=== PATIENT | female | born 1970 | race Caucasian/White ===

== ENCOUNTER 2021-01-15 16:12 | Outpatient (REF) | payer MEDICARE, MEDICAID, SELFPAY ==
[2021-01-16 07:57] LABS: Follicle Stimulating Hormone 5.4 mIU/mL
== END 2021-01-15 16:13 | disposition home or self-care (01) ==
LOC: HO.LAB 16:12
PROVIDERS: PCP Internal Medicine; Visit Provider Advanced Practice Midwife
DX: R23.2 Flushing (principal)
CPT/HCPCS: 36415; 83001

== ENCOUNTER → 2021-01-20 15:53 | Outpatient (BNVA) | payer MEDICARE, MEDICAID, SELFPAY | PROVIDERS: PCP Internal Medicine; Visit Provider Advanced Practice Midwife | DX: Z13.89 Encounter for screening for other disorder (principal) | CPT/HCPCS: Q3014 ==

== ENCOUNTER → 2021-01-21 12:44 | Outpatient (BNVA) | payer MEDICARE, MEDICAID, SELFPAY | PROVIDERS: PCP Internal Medicine; Visit Provider Advanced Practice Midwife | DX: Z13.89 Encounter for screening for other disorder (principal) | CPT/HCPCS: Q3014 ==

== ENCOUNTER 2021-06-18 | Outpatient (REF) | payer MEDICARE, MEDICAID, SELFPAY ==
[2021-06-18 11:24] LABS: Glucose Urine UA NEG (NEG); Leukocyte Esterase Urine TRACE (NEG); Nitrite Urine NEG (NEG); Urine Blood TRACE (NEG); Urine Ketones NEG (NEG); Urine Protein NEG (NEG-TRACE)
[2021-06-18 11:26] LABS: Appearance Urine CLEAR; Color Urine YELLOW
[2021-06-18 11:36] LABS: Squamous Epithelial Cell Urine TRACE /LPF
== END 2021-06-18 00:01 | disposition home or self-care (01) ==
LOC: HO.HMGCLNP
PROVIDERS: Visit Provider Nurse Practitioner Family
DX: R82.90 Unspecified abnormal findings in urine (principal)
CPT/HCPCS: 81001; 87086

== ENCOUNTER 2021-11-02 02:00 | Outpatient (REF) | payer MEDICARE, MEDICAID, SELFPAY ==
[2021-11-02 16:26] LABS: Appearance Urine CLEAR; Color Urine YELLOW; Glucose Urine UA NEG (NEG); Leukocyte Esterase Urine NEG (NEG); Nitrite Urine NEG (NEG); PH 6.5 (5.0-8.0); UACC Culture Trigger NO; Urine Blood 3+ (NEG); Urine Ketones NEG (NEG); Urine Protein TRACE MG/DL (NEG-TRACE)
[2021-11-02 16:35] LABS: WBC Urine 0-2 /HPF (0-4)
[2021-11-02 16:36] LABS: Squamous Epithelial Cell Urine TRACE /LPF
== END 2021-11-02 02:01 | disposition home or self-care (01) ==
LOC: HO.HMGCLNP 02:00
PROVIDERS: Visit Provider Internal Medicine
DX: R30.0 Dysuria (principal)
CPT/HCPCS: 81001

== ENCOUNTER 2022-07-25 11:41 | Outpatient (REF) | payer MEDICARE, MEDICAID, SELFPAY ==
[2022-07-25 12:03] LABS: MANUAL DIFF FLAG NO
[2022-07-25 12:15] LABS: Basophils Percent Auto 0.5 % (0-2); Eosinophils Absolute Auto 0.1 X10*3/uL (0.0-0.4); Eosinophils Percent Auto 1.6 % (0-4); Hematocrit 42.5 % (37.0-47.0); Hemoglobin 14.3 g/dl (12.0-16.0); Imm Gran Abs Auto 0.01 X10*3/uL (0.00-0.03); Imm Gran Pct Auto 0.2 % (0.0-0.4); Lymphocytes Absolute Auto 2.2 X10*3/uL (1.2-4.9); Lymphocytes Percent Auto 38.7 % (20-40); Mean Corpuscular HGB Conc 33.6 g/dl (31.0-35.0); Mean Corpuscular Hemoglobin 31.6 pg (27.0-33.0); Mean Corpuscular Volume 93.8 fL (80.0-98.0); Monocytes Absolute Auto 0.4 X10*3/uL (0.1-1.2); Monocytes Percent Auto 7.1 % (2-11); Neutrophils Percent Auto 51.9 % (45-73); Platelet Count 191 X10*3/uL (160-400); Red Blood Count 4.53 X10*6/uL (4.20-5.50); Red Cell Distribution Width 12.5 % (11.0-16.0); White Blood Count 5.8 X10*3/uL (4.8-10.8)
[2022-07-25 12:52] LABS: Anion Gap 13 (12-20); Blood Urea Nitrogen 13 mg/dL (9-16); Calcium 9.9 mg/dL (8.4-10.2); Carbon Dioxide 29 mmol/L (22-29); Chloride 105 mmol/L (96-108); Estimated Glomerular Filt Rate > 60; Glucose Random 96 mg/dL (60-115); Potassium 4.2 mmol/L (3.3-5.1); Sodium 143 mmol/L (135-145)
== END 2022-07-25 11:42 | disposition home or self-care (01) ==
LOC: HO.LAB 11:41
PROVIDERS: PCP Internal Medicine; Visit Provider Psychiatry & Neurology Neurology
DX: R56.9 Unspecified convulsions (principal)
CPT/HCPCS: 36415; 80048; 85025

== ENCOUNTER 2022-08-09 10:23 | Outpatient (REF) | payer MEDICARE, MEDICAID, SELFPAY ==
--- NOTE | ~2022-08-09 | CT_ITS ---
EXAMINATION: CT HEAD WITHOUT CONTRAST CLINICAL INFORMATION: Convulsions COMPARISON: November 26, 2017 TECHNIQUE: Contiguous axial imaging was performed from the skull base to vertex without intravenous administration of contrast. This CT examination was performed using dose optimization techniques as appropriate, variously including the following: *Automated exposure control *Adjustment of mA and/or kV according to patient size (this includes techniques or standardized protocols for targeted exams where dose is matched to indication/reason for exam; i.e. extremities or head) *Use of iterative reconstruction technique DLP: 555 mGy-cm FINDINGS: No intracranial hemorrhage identified. No abnormal mass effect or midline structure shift is seen. There is again noted to be cerebellar atrophy with prominence of adjacent CSF spaces. There is wide communication between the cisterna magna and fourth ventricle. Harris-white matter interfaces are maintained. Paranasal sinuses and mastoid air cells are aerated. CT/CT head/brain wo IV con IMPRESSION: No acute intracranial pathology. No significant change in cerebellar atrophy.
== END 2022-08-09 10:24 | disposition home or self-care (01) ==
LOC: HO.CT 10:23
PROVIDERS: PCP Internal Medicine; Visit Provider Psychiatry & Neurology Neurology
DX: R56.9 Unspecified convulsions (principal)
CPT/HCPCS: 70450

== ENCOUNTER 2022-08-18 13:51 | Outpatient (REF) | payer MEDICARE, MEDICAID, SELFPAY ==
[2022-08-19 09:47] LABS: BV Int Neg Control Negative (Negative); BV Int Pos Control Positive (Positive)
== END 2022-08-18 13:52 | disposition home or self-care (01) ==
LOC: HO.LNP 13:51
PROVIDERS: Visit Provider Advanced Practice Midwife
DX: N90.89 Other specified noninflammatory disorders of vulva and perineum (principal)
CPT/HCPCS: 87480; 87510; 87660; 99212

== ENCOUNTER 2022-10-31 17:14 | Emergency (ER) | payer MEDICARE, MEDICAID, SELFPAY ==
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
[2022-10-31 19:23] VITALS: BP 128/74; PULSE 82; RESP 16; TEMP 36.3; O2SAT 93; BMI 22.4
[2022-10-31 21:12] VITALS: BP 116/76; PULSE 99; RESP 14; TEMP 36.8; O2SAT 99
--- NOTE | 2022-10-31 21:40 | PC.NURSE ---
Eval by PA, pt well appearing offers no complaints at this time. Cleared for dc home with staff.
== END 2022-10-31 21:42 | disposition home or self-care (01) ==
PROVIDERS: Emergency Provider Emergency Medicine
DX: R51.9 Headache, unspecified (principal); M54.2 Cervicalgia; Z79.899 Other long term (current) drug therapy
CPT/HCPCS: 70450; 72125; 99283; 99284

== ENCOUNTER 2023-04-07 07:34 | Emergency (ER) | payer MEDICARE, MEDICAID, SELFPAY ==
--- NOTE | ~2023-04-07 | XR_ITS ---
EXAMINATION: XR ANKLE, RIGHT CLINICAL INFORMATION: Slipped in shower. COMPARISON: None available. TECHNIQUE: AP, lateral, and mortise views of the right ankle. FINDINGS: The ankle mortise and subtalar joints are normal. There is no visible acute fracture or dislocation seen. There is minimal lateral malleolar soft tissue swelling likely ligamentous injury. XR/XR ankle RT 2V IMPRESSION: Minimal lateral malleolar soft tissue swelling likely ligamentous injury. No visible acute fracture or dislocation seen.
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
[2023-04-07 07:43] VITALS: BP 122/86; BP 130/69; PULSE 102; PULSE 96; RESP 18; TEMP 36.6; O2SAT 100; O2SAT 99; BMI 20.6
[2023-04-07 07:49] VITALS: PULSE 97; RESP 16
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
== END 2023-04-07 09:56 | disposition home or self-care (01) ==
PROVIDERS: Emergency Provider Emergency Medicine; PCP Internal Medicine
DX: S90.01XA Contusion of right ankle, initial encounter (principal); W07.XXXA Fall from chair, initial encounter; E78.5 Hyperlipidemia, unspecified; G80.9 Cerebral palsy, unspecified; Y93.E1 Activity, personal bathing and showering; Y92.012 Bathroom of single-family (private) house as the place of occurrence of the external cause; Y99.9 Unspecified external cause status; Z79.02 Long term (current) use of antithrombotics/antiplatelets; Z79.899 Other long term (current) drug therapy
CPT/HCPCS: 73600; 99283; 99284

== ENCOUNTER 2023-05-26 09:27 | Outpatient (REF) | payer MEDICARE, MEDICAID, SELFPAY ==
[2023-05-26 12:15] LABS: Alanine Aminotransferase 19 U/L (0-31); Aspartate Amino Transferase 17 U/L (5-31); Cholesterol 157 mg/dL; HDL Cholesterol 53 mg/dL; LDL Cholesterol Calculated 92 mg/dl; Triglycerides 64 mg/dL
== END 2023-05-26 09:28 | disposition home or self-care (01) ==
LOC: HO.HMGCLDS 09:27
PROVIDERS: PCP Internal Medicine; Visit Provider Internal Medicine
DX: E78.5 Hyperlipidemia, unspecified (principal)
CPT/HCPCS: 36415; 80061; 84450; 84460

== ENCOUNTER 2023-07-21 08:47 | Outpatient (REF) | payer MEDICARE, MEDICAID, SELFPAY ==
[2023-07-21 11:22] LABS: MANUAL DIFF FLAG NO
[2023-07-21 11:36] LABS: Basophils Percent Auto 0.4 % (0-2); Eosinophils Absolute Auto 0.1 X10*3/uL (0.0-0.4); Eosinophils Percent Auto 1.3 % (0-4); Hematocrit 43.3 % (37.0-47.0); Hemoglobin 14.1 g/dl (12.0-16.0); Imm Gran Abs Auto 0.02 X10*3/uL (0.00-0.03); Imm Gran Pct Auto 0.3 % (0.0-0.4); Lymphocytes Absolute Auto 1.8 X10*3/uL (1.2-4.9); Lymphocytes Percent Auto 23.9 % (20-40); Mean Corpuscular HGB Conc 32.6 g/dl (31.0-35.0); Mean Corpuscular Volume 98.2 fL (80.0-98.0); Mean Platelet Volume 12.5 fL (9.4-12.3); Monocytes Absolute Auto 0.5 X10*3/uL (0.1-1.2); Monocytes Percent Auto 6.1 % (2-11); Neutrophils Absolute Auto 5.1 x10*3/uL (2.0-8.3); Platelet Count 225 X10*3/uL (160-400); Red Blood Count 4.41 X10*6/uL (4.20-5.50); Red Cell Distribution Width 12.8 % (11.0-16.0); White Blood Count 7.5 X10*3/uL (4.8-10.8)
[2023-07-21 12:41] LABS: Vitamin B12 413 pg/mL (200-900)
[2023-07-21 12:42] LABS: Alanine Aminotransferase 26 U/L (0-31); Albumin Level 4.1 g/dL (3.5-5.0); Alkaline Phosphatase 116 U/L (39-117); Anion Gap 13 (12-20); Aspartate Amino Transferase 19 U/L (5-31); Bilirubin Total 1.1 mg/dL (0.0-1.0); Blood Urea Nitrogen 15 mg/dL (9-16); Calcium 9.7 mg/dL (8.4-10.2); Carbon Dioxide 26 mmol/L (22-29); Chloride 106 mmol/L (96-108); Cholesterol 148 mg/dL (<200); Estimated Glomerular Filt Rate 58; Glucose Fasting 91 mg/dL (60-99); HDL Cholesterol 56 mg/dL (>40); LDL Cholesterol Calculated 80 mg/dL (<100); Sodium 141 mmol/L (135-145); Total Protein 7.3 g/dL (6.5-8.0); Triglycerides 61 mg/dL (<150)
[2023-07-21 12:59] LABS: Vitamin D 25-OH Total 17.6 ng/mL (>30)
== END 2023-07-21 08:48 | disposition home or self-care (01) ==
LOC: HO.HMGCLDS 08:47
PROVIDERS: PCP Internal Medicine; Visit Provider Internal Medicine
DX: E78.5 Hyperlipidemia, unspecified (principal); G80.9 Cerebral palsy, unspecified; K59.00 Constipation, unspecified; F81.89 Other developmental disorders of scholastic skills; R63.4 Abnormal weight loss
CPT/HCPCS: 36415; 80053; 80061; 82306; 82607; 82746; 84443; 85025

== ENCOUNTER 2023-07-26 00:41 | Emergency (ER) | payer MEDICARE, MEDICAID, SELFPAY ==
--- NOTE | ~2023-07-26 | XR_ITS ---
EXAMINATION: XR CHEST CLINICAL INFORMATION: Fever. COMPARISON: 11/26/2017 TECHNIQUE: Frontal view of the chest was obtained. FINDINGS: The cardiomediastinal silhouette is normal. There is no focal lung consolidation or pleural effusion. The bony structures and soft tissues are unremarkable. XR/XR chest 1V IMPRESSION: No active cardiopulmonary disease.
[2023-07-26 00:51] VITALS: BP 104/68; BP 107/68; PULSE 114; PULSE 72; RESP 18; TEMP 38.3; O2SAT 94; O2SAT 96; BMI 19.7
--- NOTE | 2023-07-26 00:59 | ED_ITS ---
HPI - Fever General Chief Complaint: Fever Stated Complaint: fever Time Seen by Provider: 07/26/23 00:51 Source: EMS Mode of arrival: EMS Limitations: other History of Present Illness HPI Narrative: patient comes to the emergency room via ambulance from a nursing home. According to the staff, he reported to EMS that the patient had a fever starting today, up to 1 of the knee. They did not give any medication to the patient. Patient's mother is at bedside, reports that several people at the nursing home have been sick. Diagnosis unclear. Less than 2 weeks ago, patient was diagnosed with a UTI, patient finished a 7 day course of antibiotics with Bactrim. Patient has cerebral palsy, patient is unable to make her needs known Related Data Home Medications Medication Instructions Recorded Confirmed baclofen 20 mg tablet 20 mg PO PRN 03/28/22 05/10/22 baclofen 10 mg tablet 10 mg PO BID 07/29/22 Previous Rx's Medication Instructions Recorded carbamide peroxide 6.5 % ear drops 5 drp otic (ear) left DAILY 4 days 11/25/21 (Debrox) #18 mL lightweight manual wheelchair #1 ea 06/02/22 emollient combination no.69 See Rx Instructions topical .qd 07/20/22 (Eucerin Skin Calming cream) #226 grams hydroxyzine HCl 10 mg tablet 10 mg PO BEDTIME PRN itching #30 08/12/22 tabs triamcinolone acetonide 0.025 % 1 appl topical BID 10 days #15 08/24/22 topical cream grams wheelchair #1 ea 11/24/22 oxybutynin chloride 10 mg 10 mg PO QPM #90 tabs 01/25/23 tablet,extended release 24 hr acetaminophen 160 mg/5 mL oral 480 mg (15 mL) PO Q6H PRN fever or 02/23/23 liquid pain #473 mL bacitracin zinc 500 unit/gram 1 appl topical TID PRN Skin 02/23/23 topical ointment (Antibiotic infection #14 grams (bacitracin zinc)) polyethylene glycol 3350 17 gram 17 g PO DAILY PRN constipation #30 02/23/23 oral powder packet (Miralax) ea atorvastatin 10 mg tablet 10 mg PO DAILY #90 tabs 05/11/23 miscellaneous medical supply See Rx Instructions miscellaneous 06/08/23 .COMPLEX #1 ea docusate sodium 100 mg capsule 100 mg PO BID #60 caps 07/07/23 nirmatrelvir 300 mg (150 mg See Rx Instructions PO .COMPLEX 07/26/23 x2)-ritonavir 100 mg tablet,dose #30 ea pack (Paxlovid) Allergies Allergy/AdvReac Type Severity Reaction Status Date / Time citalopram [From Celexa] Allergy Unknown Unknown Verified 08/18/22 13:33 nitrofurantoin Allergy Unknown Unknown Verified 08/18/22 13:33 [From Macrodantin] Review of Systems Review of Systems: fever Yes Unobtainable due to mental condition ( cerebral palsy) [facility] Past Medical History Medical History Ataxia Cerebral palsy Constipation Dyslipidemia Gait instability Impacted cerumen of both ears Microcephaly Rash Thrush, oral Urinary incontinence Surgical History No history of previous surgery Family History Family History Mother Fibromyalgia Osteoporosis Social History Social History Housing Other:: nursing home Alcohol intake: never Patient Tobacco Use Status: Never used Tobacco e-Cigarette/Vaping Use: Never Used Current occupational status: disabled Gender identity: Female Cognitive needs: Yes Hearing needs: No Vision needs: No Physical Exam Vital Signs: Vital Signs: Last Vital Signs Temp 101 F H 07/26/23 00:51 Pulse 114 H 07/26/23 00:51 Resp 18 07/26/23 00:51 BP 107/68 07/26/23 00:51 Pulse Ox 94 07/26/23 00:51 O2 Del Method Room Air 07/26/23 00:51 BMI result Body Mass Index 19.7 Const: Other: Appearance: Alert. Oriented X3. No acute distress. Eyes: Pupils equal, round and reactive to light. ENT: Pharynx normal. Neck: Normal inspection. Neck supple. No lymph nodes noted. No crepitus CVS: Normal heart rate and rhythm. Pulses normal. Normal S1 and S2 Respiratory: No respiratory distress. Breath sounds normal. No Wheezing. No rales Abdomen: Soft and nontender. No rigidity. No distention. Skin: Skin warm and dry. Normal skin color. Normal skin turgor. Extremities: No lower extremity edema. No Lacerations. No Rash Neuro: Oriented X 3. No motor deficit. No sensory deficit. Moving all ext remities. No slurred speech. CN 2 through 12 grossly intact Psych: calm, cooperative, normal affect Course Course Course Narrative: - all of patient's labs and imaging pending Medications Administered Discontinued Medications Generic Name Dose Route Start Last Admin Trade Name Freq PRN Reason Stop Dose Admin Sodium Chloride 1,000 mls @ 999 mls/hr 07/26/23 00:56 07/26/23 01:32 Ns IVCONT 07/26/23 01:56 999 mls/hr .Q1H1M ONE Administration Medical Decision Making Medical Decision Making [facility] Narrative: -patient was given acetaminophen -my interpretation of chest x-ray: No infiltrate -my interpretation of labs: Patient tested positive for COVID. Patient does not have any oxygen desaturation. Sepsis not suspected -patient's nursing home has been informed -patient's mother has been informed as well Differential Diagnosis Differential Diagnoses: The differential diagnosis associated with the presentation includes (Pneumonia, COVID, influenza) Admission/Observation Consideration of admission/observation: Escalation of care including admission/observation considered (Initially, admission was considered.) Lab Data [facility] Lab Attestation statement: I reviewed the patient's lab results. 07/26/23 01:30 07/26/23 01:30 Labs: Lab Results 07/26/23 07/26/23 07/26/23 Range/Units 01:30 01:30 01:30 WBC 7.7 (4.8-10.8) X10*3/uL RBC 4.02 L (4.20-5.50) X10*6/uL Hgb 12.6 (12.0-16.0) g/dl Hct 38.2 (37.0-47.0) % MCV 95.0 (80.0-98.0) fL MCH 31.3 (27.0-33.0) pg MCHC 33.0 (31.0-35.0) g/dl RDW 12.4 (11.0-16.0) % Plt Count 186 (160-400) X10*3/uL MPV 11.6 (9.4-12.3) fL Immature Gran % (Auto) 0.3 (0.0-0.4) % Neut % (Auto) 71.6 (45-73) % Lymph % (Auto) 15.4 L (20-40) % [place] % (Auto) 12.0 H (2-11) % Eos % (Auto) 0.4 (0-4) % Baso % (Auto) 0.3 (0-2) % Lymph # (Auto) 1.2 (1.2-4.9) X10*3/uL [place] # (Auto) 0.9 (0.1-1.2) X10*3/uL Eos # (Auto) 0.0 (0.0-0.4) X10*3/uL Baso # (Auto) 0.0 (0.0-0.2) X10*3/uL Abs Immat Gran (auto) 0.02 (0.00-0.03) X10*3/uL Absolute Neuts (auto) 5.5 (2.0-8.3) x10*3/uL Absolute Nucleated RBC 0.000 (0.0-0.012) X10*3/uL Nucleated RBC % (auto) 0.0 (0.0-0.2) /100WBC PT 12.2 (11.1-13.3) SEC INR 1.0 (0.9-1.1) Sodium 139 (135-145) mmol/L Potassium 4.1 (3.3-5.1) mmol/L Chloride 105 (96-108) mmol/L Carbon Dioxide 27 (22-29) mmol/L Anion Gap 11 L (12-20) BUN 17 H (9-16) mg/dL Creatinine 0.72 (0.5-1.4) mg/dL Estim Creat Clear Calc 68.9 Estimated GFR > 60 Random Glucose 105 (60-115) mg/dL Lactic Acid (0.5-2.0) mmol/L Calcium 9.3 (8.4-10.2) mg/dL Total Bilirubin 0.6 (0.0-1.0) mg/dL Direct Bilirubin 0.3 (0.0-0.5) mg/dL AST 18 (5-31) U/L ALT 20 (0-31) U/L Alkaline Phosphatase 89 (39-117) U/L Total Protein 6.6 (6.5-8.0) g/dL Albumin 3.8 (3.5-5.0) g/dL COVID-19 (AMAN) (Negative) COVID-19 Clin Com Influenza Type A (KIRBY) (Negative) Influenza Type B (KIRBY) (Negative) Influenza A & B Note 07/26/23 07/26/23 07/26/23 Range/Units 01:30 01:30 01:30 WBC (4.8-10.8) X10*3/uL RBC (4.20-5.50) X10*6/uL Hgb (12.0-16.0) g/dl Hct (37.0-47.0) % MCV (80.0-98.0) fL MCH (27.0-33.0) pg MCHC (31.0-35.0) g/dl RDW (11.0-16.0) % Plt Count (160-400) X10*3/uL MPV (9.4-12.3) fL Immature Gran % (Auto) (0.0-0.4) % Neut % (Auto) (45-73) % Lymph % (Auto) (20-40) % [place] % (Auto) (2-11) % Eos % (Auto) (0-4) % Baso % (Auto) (0-2) % Lymph # (Auto) (1.2-4.9) X10*3/uL [place] # (Auto) (0.1-1.2) X10*3/uL Eos # (Auto) (0.0-0.4) X10*3/uL Baso # (Auto) (0.0-0.2) X10*3/uL Abs Immat Gran (auto) (0.00-0.03) X10*3/uL Absolute Neuts (auto) (2.0-8.3) x10*3/uL Absolute Nucleated RBC (0.0-0.012) X10*3/uL Nucleated RBC % (auto) (0.0-0.2) /100WBC PT (11.1-13.3) SEC INR (0.9-1.1) Sodium (135-145) mmol/L Potassium (3.3-5.1) mmol/L Chloride (96-108) mmol/L Carbon Dioxide (22-29) mmol/L Anion Gap (12-20) BUN (9-16) mg/dL Creatinine (0.5-1.4) mg/dL Estim Creat Clear Calc Estimated GFR Random Glucose (60-115) mg/dL Lactic Acid 0.6 (0.5-2.0) mmol/L Calcium (8.4-10.2) mg/dL Total Bilirubin (0.0-1.0) mg/dL Direct Bilirubin (0.0-0.5) mg/dL AST (5-31) U/L ALT (0-31) U/L Alkaline Phosphatase (39-117) U/L Total Protein (6.5-8.0) g/dL Albumin (3.5-5.0) g/dL COVID-19 (AMAN) Positive A (Negative) COVID-19 Clin Com See Note Influenza Type A (KIRBY) Negative (Negative) Influenza Type B (KIRBY) Negative (Negative) Influenza A & B Note See Note Independent Interpretation I performed an independent interpretation of an: Plain X-Ray Radiology Impression Discussion of test interpretation with radiology: I have reviewed the radiologist's reading. Radiologist Impression: The cardiomediastinal silhouette is normal. There is no focal lung consolidation or pleural effusion. The bony structures and soft tissues are unremarkable. XR/XR chest 1V IMPRESSION: No active cardiopulmonary disease. Independent Historian Clinical information obtained from an independent historian. History obtained from or confirmed by: Parent and Other (intermediate staff) Critical Care Time Critical Care Time Critical Care Time: Yes Total Critical Care Time: 30 Attestation: I have personally provided critical care time. Time includes review of lab data, radiology results, discussion with consultants, and monitoring for potential decompensation. Intervention performed as documented. Discharge Plan Discharge Clinical Impression: COVID Patient Disposition: Home, Self-Care Instructions: COVID-19 (Coronavirus Disease 2019) (ED) Additional Instructions: Please follow-up with your primary care physician tomorrow. If you have any worsening or new symptoms, please return to the emergency room or call 911 Prescriptions: New Paxlovid 300 mg (150 mg x 2)-100 mg tablets,dose pack See Rx Instructions .ROUTE .COMPLEX Qty: 30 0RF Rx Instructions: take TWO 150 mg tablets of nirmatrelvir with ONE 100 mg tablet of ritonavir twice daily for 5 days No Action carbamide peroxide [Debrox] 6.5 % drops 5 drp otic (ear) left DAILY 4 Days Qty: 18 0RF (DME) lightweight manual wheelchair See Rx Instructions .Route .MEDSUPPLY Qty: 1 0RF Rx Instructions: As directed Eucerin Skin Calming Cream See Rx Instructions topical .qd Qty: 226 1RF Rx Instructions: Apply once a day as directed topically QD; triamcinolone acetonide 0.025 % cream 1 appl topical BID 10 Days Qty: 15 0RF (DME) wheelchair See Rx Instructions .Route .MEDSUPPLY Qty: 1 0RF Rx Instructions: As directed oxybutynin chloride 10 mg tablet extended release 24hr 10 mg PO QPM Qty: 90 1RF acetaminophen 160 mg/5 mL liquid 480 mg PO Q6H PRN (Reason: fever or pain) Qty: 473 0RF bacitracin zinc [Antibiotic (bacitracin zinc)] 500 unit/gram ointment 1 appl topical TID PRN (Reason: Skin infection) Qty: 14 0RF polyethylene glycol 3350 [Miralax] 17 gram powder in packet 17 g PO DAILY PRN (Reason: constipation) Qty: 30 0RF Rx Instructions: give if no bowel movement for 2 days, call PCP if no BM after 2 doses atorvastatin 10 mg tablet 10 mg PO DAILY Qty: 90 0RF Rx Instructions: Schedule next PCP appt for more refills miscellaneous medical supply Misc See Rx Instructions miscellaneous .COMPLEX Qty: 1 0RF Rx Instructions: lift chair as directed; docusate sodium 100 mg capsule 100 mg PO BID Qty: 60 5RF baclofen 10 mg tablet 10 mg PO BID hydroxyzine HCl 10 mg tablet 10 mg PO BEDTIME PRN (Reason: itching) Qty: 30 2RF baclofen 20 mg tablet 20 mg PO PRN Rx Instructions: 1 1/2 tab in the am, 1 tab in the noon, 1 tab @ 4 pm , and 1 1/2 tab at night
[2023-07-26] MEDS: 0.9 % Sodium Chloride 1,000 ML 999 ML IVCONT (01:32)
[2023-07-26 01:38] LABS: MANUAL DIFF FLAG NO
[2023-07-26 01:39] LABS: Basophils Percent Auto 0.3 % (0-2); Eosinophils Percent Auto 0.4 % (0-4); Hematocrit 38.2 % (37.0-47.0); Hemoglobin 12.6 g/dl (12.0-16.0); Imm Gran Abs Auto 0.02 X10*3/uL (0.00-0.03); Imm Gran Pct Auto 0.3 % (0.0-0.4); Lymphocytes Absolute Auto 1.2 X10*3/uL (1.2-4.9); Lymphocytes Percent Auto 15.4 % (20-40); Mean Corpuscular Hemoglobin 31.3 pg (27.0-33.0); Mean Platelet Volume 11.6 fL (9.4-12.3); Monocytes Absolute Auto 0.9 X10*3/uL (0.1-1.2); Neutrophils Absolute Auto 5.5 x10*3/uL (2.0-8.3); Neutrophils Percent Auto 71.6 % (45-73); Platelet Count 186 X10*3/uL (160-400); Red Blood Count 4.02 X10*6/uL (4.20-5.50); Red Cell Distribution Width 12.4 % (11.0-16.0); White Blood Count 7.7 X10*3/uL (4.8-10.8)
[2023-07-26 01:47] LABS: Prothrombin Time 12.2 SEC (11.1-13.3)
[2023-07-26 01:49] LABS: COVID-19 Test Positive (Negative); IDNOW Serial# BCCEAD1C
[2023-07-26 01:54] LABS: IDNOW Serial# 08D9AD1C; Influenza A Negative (Negative); Influenza B2 Negative (Negative)
[2023-07-26 02:01] LABS: Lactic Acid 0.6 mmol/L (0.5-2.0)
[2023-07-26 02:07] LABS: Alanine Aminotransferase 20 U/L (0-31); Albumin Level 3.8 g/dL (3.5-5.0); Alkaline Phosphatase 89 U/L (39-117); Anion Gap 11 (12-20); Aspartate Amino Transferase 18 U/L (5-31); Bilirubin Direct 0.3 mg/dL (0.0-0.5); Bilirubin Total 0.6 mg/dL (0.0-1.0); Blood Urea Nitrogen 17 mg/dL (9-16); Calcium 9.3 mg/dL (8.4-10.2); Carbon Dioxide 27 mmol/L (22-29); Chloride 105 mmol/L (96-108); Creatinine Clr Calc Pharmacy 68.9; Estimated Glomerular Filt Rate > 60; Glucose Random 105 mg/dL (60-115); Potassium 4.1 mmol/L (3.3-5.1); Sodium 139 mmol/L (135-145); Total Protein 6.6 g/dL (6.5-8.0)
[2023-07-26] MEDS: Acetaminophen 325 MG TABLET 650 MG PO (02:41)
[2023-07-26 02:50] VITALS: BP 119/63; PULSE 96; RESP 15; TEMP 37.6; O2SAT 98
== END 2023-07-26 03:08 | disposition home or self-care (01) ==
LOC: HO.ED 02:52
PROVIDERS: Emergency Provider Emergency Medicine; PCP Internal Medicine
DX: U07.1 COVID-19 (principal); R50.9 Fever, unspecified; E78.5 Hyperlipidemia, unspecified; G80.9 Cerebral palsy, unspecified; Z79.899 Other long term (current) drug therapy
CPT/HCPCS: 51701; 71045; 80048; 80076; 83605; 85025; 85610; 87040; 87147; 87205; 87502; 87635; 99283; 99284

== ENCOUNTER 2023-08-01 11:53 | Outpatient (AMB) | payer MEDICARE, MEDICAID, SELFPAY ==
[2023-08-01 12:03] VITALS: BP 100/70; PULSE 88; O2SAT 96; BMI 17.4
--- NOTE | 2023-08-01 12:03 | A.OFFPC_ITS ---
Vital Signs 08/01/23 12:03 Height 5 ft 2 in Weight 95 lb BMI 17.4 BP 100/70 Blood Pressure Location Rt brachial Position Sitting Pulse 88 Pulse Source Pulse Oximeter Pulse Oximetry (%) 96 Oxygen Delivery Method Room Air Intake Visit Reasons: Weight loss, ok per Dr Beasley Allergies citalopram [From Celexa] Allergy (Unknown, Verified 09/24/23 21:47) Unknown nitrofurantoin [From Macrodantin] Allergy (Unknown, Verified 09/24/23 21:47) Unknown Medication List - Last Reconciled 08/01/23 by Madelin Reyes MD acetaminophen 480 mg (15 mL) PO Q6H PRN atorvastatin 10 mg PO DAILY bacitracin zinc (Antibiotic (bacitracin zinc)) 1 appl topical TID PRN baclofen 10 mg PO BID baclofen 10 mg PO BID baclofen 20 mg PO PRN carbamide peroxide 6.5% (Debrox) 5 drps otic (ear) left .once a month docusate sodium 100 mg PO BID emollient combination no.69 (Eucerin Skin Calming cream) Apply once a day as directed topically QD; hydroxyzine HCl 10 mg PO BEDTIME PRN [lightweight manual wheelchair As directed] miscellaneous medical supply lift chair as directed; nirmatrelvir-ritonavir 300 mg (150 mg x 2)-100 mg (Paxlovid) take TWO 150 mg tablets of nirmatrelvir with ONE 100 mg tablet of ritonavir twice daily for 5 days oxybutynin chloride ER 10 mg PO QPM phenazopyridine (Azo Urinary Pain Relief) 199 mg PO Q6H PRN polyethylene glycol 3350 (Miralax) 17 grams PO DAILY PRN triamcinolone acetonide 0.025% 1 appl topical BID 10 days [wheelchair As directed] Tobacco use date assessed: 08/12/22 HPI Weight loss, ok per Dr Beasley HPI Details 53-year-old lady with cerebral palsy, no nverbal, with history of dyslipidemia, here today accompanied by mother, who is concerned that her daughter is losing weight, not getting enough food into her at the longterm. Patient's mom states that when she is with her she is eating a lot, but still continuing to lose weight. Has not been any complain of abdominal pain, no heartburn, no nausea vomiting, but has been having intermittent episodes of constipation. Patient's mother also states that longterm has been telling her that her daughter would occasionally choke on her food, but she has not seen any evidence of that whenever she has her at home. She recent fasting labs done approximately a week ago which showed her electrolytes, fasting glucose, liver panel, and lipid panel were within normal limits, but was noted to have low vitamin-D level. [facility] Medical History (Updated 09/24/23 @ 22:27 by Madelin Reyes MD) Underweight Vitamin D deficiency History of COVID-19 Weight loss, unintentional Gait instability Dyslipidemia Cerebral palsy Constipation Urinary incontinence Ataxia Surgical History No history of previous surgery Family History Mother Fibromyalgia Osteoporosis Social History Housing: Other Housing Other:: longterm Alcohol intake: never Patient Tobacco Use Status: Never used Tobacco e-Cigarette/Vaping Use: Never Used Current occupational status: disabled Gender identity: Female Cognitive needs: Yes Hearing needs: No Vision needs: No Female Reproductive History Menstrual Date of menopause: 01/13/21 Review of Systems Const All systems reviewed & are unremarkable except as noted in HPI and below Neuro Reports Abnormal speech present Physical exam (Primary Care) Vital Signs: Last Vital Signs Pulse 88 08/01/23 12:03 BP 100/70 08/01/23 12:03 Pulse Ox 96 08/01/23 12:03 Oxygen Delivery Method Room Air 08/01/23 12:03 BMI result Body Mass Index 17.4 Tobacco/Smoking Status: Tobacco use Status Tobacco use date assessed 08/01/23 08/01/23 12:07 Patient Tobacco Use Status Never used Tobacco 08/01/23 12:07 e-Cigarette/Vaping Use Never Used 08/01/23 12:07 Const General: cooperative, comfortable and no acute distress Nutritional Appearance: average body habitus Limitations: behavioral limitations, language barrier and physical limitations HENMT Head: Yes normocephalic and Yes atraumatic Ears: external ears normal, TM's normal bilaterally and EAC's normal General nose exam: Normal external nose present and No nasal discharge present Mouth: Normal oral and palatal mucosa present, lip normal and moist mucous membranes Eyes General: appearance normal, both eyes and all related structures Neck Neck: Yes full ROM, Yes no lymphadenopathy and Yes supple Cardio Rate: regular rate Rhythm: regular rhythm Heart sounds: S1 normal heart sound present and S2 normal heart sound present GI Inspection: Yes normal to inspection Palpation (GI): Soft to palpation, nontender, no guarding and no masses Auscultation: normal bowel sounds Skin General skin exam: no rashes or lesions noted Neuro General: moves all extremities and no focal motor deficits Cognition (Neuro): abnormal cognition Speech: Abnormal speech present Motor exam (neuro): 5/5 motor strength present throughout Extrem General: Yes full ROM, Yes no joint enlargement, Yes no pedal edema and Yes no calf tenderness Results Reviewed Results Reviewed: RUN: 09/24/232 PAGE 1 [facility] [address] [place] [id number] Chemical Supervisor: Randy Deng M.D. Specimen Inquiry Name: Lotus Roberts Age/Sex: 53/F : 1970 Unit#: [id number] Attend Dr: Madelin Reyes MD Re07/21/23 Status: DEP REF Location: [facility] Disch: SPEC : [id number] DENIA: 07/21/2357 STATUS: COMP REQ : [id number] RECD: 07/21/23-[address]: Madelin Reyes MD COMP: 07/21/23-1259 ENTERED: 07/21/23-51 [facility] DR: ORDERED: CMP Fast, Lipid Panel, Vitamin D 25-OH, TSH Rflx Test Result Flag Reference Site Sodium 141 135-145 mmol/L Potassium 4.0 3.3-5.1 mmol/L CL 106 96-108 mmol/L CO2 26 22-29 mmol/L Gap 13 12-20 BUN 15 9-16 mg/dL Creat 0.99 0.5-1.4 mg/dL EGFR 58 NOTE: For -[place] individuals, multiply the result by 1.210. Chronic Kidney Disease: Estimated GFR < 60 mL/min/1.73m2 Severe Kidney Disease: Estimated GFR < 15 mL/min/1.73m2 FBS 91 60-99 mg/dL CA 9.7 8.4-10.2 mg/dL Total Bili 1.1 H 0.0-1.0 mg/dL AST (GOT) 19 5-31 U/L ALT (GPT) 26 0-31 U/L Protein, Total 7.3 6.5-8.0 g/dL Alb 4.1 3.5-5.0 g/dL Triglyceride 61 <150 mg/dL Desirable Triglyceride: less than 150 mg/dL Borderline High Triglyceride 150-199 mg/dL High Triglyceride: 200-499 mg/dL Very High Triglyceride: greater than or equal to 5OO mg/dL Cholesterol 148 <200 mg/dL Desirable Cholesterol: less than 200 mg/dL Borderline High Cholesterol: 200-239 mg/dL High Cholesterol: greater than 239 mg/dL LDL Calculated 80 <100 mg/dL Desirable LDL: less than 100 mg/dL Near Optimal/Above Optimal LDL: 110-129 mg/dL Borderline High LDL: 130-159 mg/dL High LDL: 160-189 mg/dL Very High LDL: greater than or equal to 190 mg/dL HDL 56 >40 mg/dL Desirable HDL: greater than 40 mg/dL Note: This HDL assay may give artificially low results in patients with liver disease. Alk Phos 116 39-117 U/L Vit D 25-OH Tot 17.6 >30 ng/mL Health Based Reference Values* Assessment and Plan Assessment & Plan (1) Constipation: Code(s): K59.00 - Constipation, unspecified Qualifiers: Constipation type: unspecified constipation type Qualified Code(s): K59.00 - Constipation, unspecified Plan: Ordered an KUB x-ray (2) Swallowing dysfunction: Code(s): R13.10 - Dysphagia, unspecified Plan: Referred to speech and hearing for evaluation of swallowing difficulties. (3) Vitamin D deficiency: Code(s): E55.9 - Vitamin D deficiency, unspecified Plan: [place] [address] units per capsule to take once a week for the next 3 months. Once finished taking the prescription, to continue taking [id number] vitamin-D 3 at 2000 units once a day (4) Underweight: Code(s): R63.6 - Underweight Plan: Referred to optical instrument assembler for guidance and referred for evaluation of any swallowing difficulties, her recent labs showed normal albumin, total protein, fasting glucose, but lipid panel showed low LDL cholesterol and triglycerides, will discontinue atorvastatin Orders: Orders XR KUB 08/01/23 K59.00 - Constipation, unspecified Referrals Speech and Hearing Referral R63.4 - Abnormal weight loss, Q02 - Microcephaly, R13.10 - Dysphagia, unspecified Medications: New cholecalciferol (vitamin D3) 1,250 mcg PO QWEEK 13 caps 0RF 3 months E55.9 - Vitamin D deficiency, unspecified Discontinued atorvastatin Schedule next PCP appt for more refills Discontinued Reason: Doctor's Order 10 mg PO DAILY 90 tabs 0RF Coding Level of Care Code Est Pt Level 4 (86866) Diagnoses Constipation, unspecified constipation type K59.00 Constipation type: unspecified constipation type Swallowing dysfunction R13.10 Vitamin D deficiency E55.9 Underweight R63.6
--- NOTE | 2023-08-01 12:03 | A.OFFPC_ITS ---
Vital Signs 08/01/23 12:03 Height 5 ft 2 in Weight 95 lb BMI 17.4 BP 100/70 Blood Pressure Location Rt brachial Position Sitting Pulse 88 Pulse Source Pulse Oximeter Pulse Oximetry (%) 96 Oxygen Delivery Method Room Air Intake Visit Reasons: Weight loss, ok per Dr Beasley Intake Note: Pt is here c/o weight loss. Allergies citalopram [From Celexa] Allergy (Unknown, Verified 08/01/23 12:09) Unknown nitrofurantoin [From Macrodantin] Allergy (Unknown, Verified 08/01/23 12:09) Unknown Medication List - Last Reconciled 08/01/23 by Madelin Reyes MD acetaminophen 480 mg (15 mL) PO Q6H PRN atorvastatin 10 mg PO DAILY bacitracin zinc (Antibiotic (bacitracin zinc)) 1 appl topical TID PRN baclofen 10 mg PO BID baclofen 10 mg PO BID baclofen 20 mg PO PRN carbamide peroxide 6.5% (Debrox) 5 drps otic (ear) left .once a month docusate sodium 100 mg PO BID emollient combination no.69 (Eucerin Skin Calming cream) Apply once a day as directed topically QD; hydroxyzine HCl 10 mg PO BEDTIME PRN [lightweight manual wheelchair As directed] miscellaneous medical supply lift chair as directed; nirmatrelvir-ritonavir 300 mg (150 mg x 2)-100 mg (Paxlovid) take TWO 150 mg tablets of nirmatrelvir with ONE 100 mg tablet of ritonavir twice daily for 5 days oxybutynin chloride ER 10 mg PO QPM phenazopyridine (Azo Urinary Pain Relief) 199 mg PO Q6H PRN polyethylene glycol 3350 (Miralax) 17 grams PO DAILY PRN triamcinolone acetonide 0.025% 1 appl topical BID 10 days [wheelchair As directed] Tobacco use date assessed: 08/01/23 Dental Screening Dental Screen Date: 08/01/23 Did you have a dental visit in the last 12 months?: Yes Did you have a dental problem in the last 6 months where you did not have access to dental care?: No Was dental information given to patient?: No HPI Weight loss, ok per Dr Beasley HPI Details 53-year-old lady with history of cerebra l palsy, dyslipidemia, developmental nonverbal disorder, with gait instability and history of vitamin-D deficiency, here today accompanied by mother for evaluation of unintentional weight loss. She currently lives in a long-term, , and mother thinks that she is not getting enough nutrition there. She states that when she is at home with her, patient has exhibited a very good appetite , even asks for seconds, and has been able to eat apple slices without having any difficulty swallowing. At the long-term however patient's mother states that they have only been giving patient soft food as they have seen her sometimes choking on her food. She however has not had any evaluation for any swallowing difficulty in the past done. She also has been having episodes of constipation lately, but denies any abdominal pain. She is currently on Colace taken 100 mg twice a day [facility] Medical History (Updated 08/01/23 @ 12:42 by Madelin Reyes MD) Vitamin D deficiency History of COVID-19 Weight loss, unintentional Rash Gait instability Impacted cerumen of both ears Dyslipidemia Cerebral palsy Thrush, oral Constipation Urinary incontinence Ataxia Microcephaly Surgical History No history of previous surgery Family History Mother Fibromyalgia Osteoporosis Social History Housing Other:: long-term Alcohol intake: never Patient Tobacco Use Status: Never used Tobacco e-Cigarette/Vaping Use: Never Used Current occupational status: disabled Gender identity: Female Cognitive needs: Yes Hearing needs: No Vision needs: No Female Reproductive History Menstrual Date of menopause: 01/13/21 Questionnaire AUDIT C Alcohol Use Questionnaire (AUDIT-C) 1. How often do you have a drink containing alcohol?: Never 3. How often do you have six or more drinks on one occasion?: Never Total Score: 0 Review of Systems Const Unobtainable due to mental condition (hx obtained from mother ) Reports as per HPI, Denies anorexia, Denies fever(s), Denies poor appetite and Denies weakness ENT Denies ear discharge, Denies mouth lesions, Denies nasal congestion and Denies nasal discharge Card Denies dyspnea Resp Denies cough, Denies dyspnea and Denies wheezing GI Denies melena, Denies hematochezia, Denies excessive flatus and Denies vomiting Neuro Denies weakness Aller/Immun Denies wheezing Physical exam (Primary Care) Vital Signs: Last Vital Signs Pulse 88 08/01/23 12:03 BP 100/70 08/01/23 12:03 Pulse Ox 96 08/01/23 12:03 Oxygen Delivery Method Room Air 08/01/23 12:03 BMI result Body Mass Index 17.4 Tobacco/Smoking Status: Tobacco use Status Tobacco use date assessed 08/01/23 08/01/23 12:07 Patient Tobacco Use Status Never used Tobacco 08/01/23 12:07 e-Cigarette/Vaping Use Never Used 08/01/23 12:07 Advance Care Planning discussion: Exists, not on file HENPR Head: Yes atraumatic Ears: TM's normal bilaterally and EAC's normal General nose exam: Normal external nose present, Normal nares present and No nasal discharge present Eyes General: appearance normal, both eyes and all related structures Neck Neck: Yes full ROM and Yes no lymphadenopathy Resp Auscultation: clear to auscultation bilaterally Cardio Other: S1-S2 present regular rate and rhythm GI Other: Normal bowel sounds, soft, nontender, no mass palpated Results Reviewed Results Reviewed: ENTERED: 07/21/23-0851 OTHR [place]: ORDERED: CMP Fast, Lipid Panel, Vitamin D 25-OH, TSH Rflx Test Result Flag Reference Site Sodium 141 135-145 mmol/L Potassium 4.0 3.3-5.1 mmol/L CL 106 96-108 mmol/L CO2 26 22-29 mmol/L Gap 13 12-20 BUN 15 9-16 mg/dL Creat 0.99 0.5-1.4 mg/dL EGFR 58 NOTE: For -[place] individuals, multiply the result by 1.210. Chronic Kidney Disease: Estimated GFR < 60 mL/min/1.73m2 Severe Kidney Disease: Estimated GFR < 15 mL/min/1.73m2 FBS 91 60-99 mg/dL CA 9.7 8.4-10.2 mg/dL Total Bili 1.1 H 0.0-1.0 mg/dL AST (GOT) 19 5-31 U/L ALT (GPT) 26 0-31 U/L Protein, Total 7.3 6.5-8.0 g/dL Alb 4.1 3.5-5.0 g/dL Triglyceride 61 <150 mg/dL Desirable Triglyceride: less than 150 mg/dL Borderline High Triglyceride 150-199 mg/dL High Triglyceride: 200-499 mg/dL Very High Triglyceride: greater than or equal to 5OO mg/dL Cholesterol 148 <200 mg/dL Desirable Cholesterol: less than 200 mg/dL Borderline High Cholesterol: 200-239 mg/dL High Cholesterol: greater than 239 mg/dL LDL Calculated 80 <100 mg/dL Desirable LDL: less than 100 mg/dL Near Optimal/Above Optimal LDL: 110-129 mg/dL Borderline High LDL: 130-159 mg/dL High LDL: 160-189 mg/dL Very High LDL: greater than or equal to 190 mg/dL HDL 56 >40 mg/dL Desirable HDL: greater than 40 mg/dL Note: This HDL assay may give artificially low results in patients with liver disease. Alk Phos 116 39-117 U/L Vit D 25-OH Tot 17.6 >30 ng/mL Health Based Reference Values* < 20 ng/mL Deficient 20-30 ng/mL Insufficient > 30 ng/mL Sufficient RUN: 08/01/23 1207 PAGE 1 [facility] [address] [place] [id number] Toppiece Cutter: Randy Deng M.D. Specimen Inquiry Name: Lotus Roberts Age/Sex: 53/F : 1970 Unit#: [id number] Attend Dr: Gabriela Ramos MD Re07/26/23 Status: DEP ER Location: [facility] Disch: SPEC : [id number] DENIA: 07/26/23 STATUS: COMP REQ : [id number] RECD: 07/26/[address]: Gabriela Ramos MD COMP: 07/26/23 ENTERED: 07/26/23 [facility] DR: ORDERED: CBC Auto Diff Test Result Flag Reference Site WBC 7.7 4.8-10.8 X10*3/uL RBC 4.02 L 4.20-5.50 X10*6/uL HGB 12.6 12.0-16.0 g/dl HCT 38.2 37.0-47.0 % MCV 95.0 80.0-98.0 fL MCH 31.3 27.0-33.0 pg MCHC 33.0 31.0-35.0 g/dl RDW 12.4 11.0-16.0 % PLT 186 160-400 X10*3/uL MPV 11.6 9.4-12.3 fL Neut Pct Auto 71.6 45-73 % ImGran Pct Auto 0.3 0.0-0.4 % Lymp Pct Auto 15.4 L 20-40 % [place] Pct Auto 12.0 H 2-11 % Eos Pct Auto 0.4 0-4 % Baso Pct Auto 0.3 0-2 % NRBC Pct Auto 0.0 0.0-0.2 /100WBC ENTERED: 07/26/23 [facility] DR: ORDERED: Liver Panel, BMP Test Result Flag Reference Site Sodium 139 135-145 mmol/L Potassium 4.1 3.3-5.1 mmol/L CL 105 96-108 mmol/L CO2 27 22-29 mmol/L Gap 11 L 12-20 BUN 17 H 9-16 mg/dL Creat 0.72 0.5-1.4 mg/dL Estimated CrCl 68.9 Provided height and weight: 157.48 cm, 48.9 kg. eGFR (calculated from the MDRD study equation) and eCrCl (calculated from the Cockcroft-Gault equation) are based on different parameters and may not yield comparable results. If eCrCl result is absurd, please check patient's height/weight. EGFR > 60 NOTE: For -[place] individuals, multiply the result by 1.210. Chronic Kidney Disease: Estimated GFR < 60 mL/min/1.73m2 Severe Kidney Disease: Estimated GFR < 15 mL/min/1.73m2 Glucose, Random 105 60-115 mg/dL CA 9.3 8.4-10.2 mg/dL Total Bili 0.6 0.0-1.0 mg/dL Direct Bili 0.3 0.0-0.5 mg/dL AST (GOT) 18 5-31 U/L ALT (GPT) 20 0-31 U/L Protein, Total 6.6 6.5-8.0 g/dL Alb 3.8 3.5-5.0 g/dL Alk Phos 89 39-117 U/L Assessment and Plan Assessment & Plan (1) Weight loss, unintentional: Code(s): R63.4 - Abnormal weight loss Plan: Reviewed recent fasting labs which showed normal hemoglobin hematocrit, normal electrolytes, renal function, fasting glucose, liver panel with normal total protein and albumin level and normal lipid levels. Will discontinue atorvastatin , check fasting lipids again on next visit. (2) Constipation: Code(s): K59.00 - Constipation, unspecified Plan: Continue with docusate sodium 100 mg 1 capsule twice a day, water. May take MiraLax as needed if no bowel movements after 2 days. KUB x-ray ordered (3) Microcephaly: Code(s): Q02 - Microcephaly (4) Swallowing dysfunction: Code(s): R13.10 - Dysphagia, unspecified Plan: Referred to the speech clinic for evaluation of problems swallowing (5) Vitamin D deficiency: Code(s): E55.9 - Vitamin D deficiency, unspecified Plan: Prescription sent for D3 07204 units per capsule to take once a week for the next 3 months Orders: Orders XR KUB 08/01/23 K59.00 - Constipation, unspecified Referrals Speech and Hearing Referral Q02 - Microcephaly, R13.10 - Dysphagia, unspecified, R63.4 - Abnormal weight loss Medications: New cholecalciferol (vitamin D3) 1,250 mcg PO QWEEK 3 months 13 caps 0RF E55.9 - Vitamin D deficiency, unspecified Discontinued atorvastatin Schedule next PCP appt for more refills Discontinued Reason: Doctor's Order 10 mg PO DAILY 90 tabs 0RF Coding Level of Care Code Est Pt Level 4 (60748) Diagnoses Weight loss, unintentional R63.4 Constipation K59.00 Microcephaly Q02 Swallowing dysfunction R13.10 Vitamin D deficiency E55.9 Additional Codes Vital Signs *Quality* - Advance Care Planning discussion: Exists, not on file ([id number])
== END 2023-08-01 12:42 | disposition home or self-care (01) ==
PROVIDERS: PCP Internal Medicine; Visit Provider Internal Medicine
DX: R63.4 Abnormal weight loss (principal); K59.00 Constipation, unspecified; Q02 Microcephaly; E55.9 Vitamin D deficiency, unspecified; R13.10 Dysphagia, unspecified; Z00.00 Encounter for general adult medical examination without abnormal findings
CPT/HCPCS: 1123F; 99214

== ENCOUNTER 2023-08-01 12:43 | Outpatient (REF) | payer MEDICARE, MEDICAID, SELFPAY ==
--- NOTE | ~2023-08-01 | XR_ITS ---
EXAMINATION: XR ABDOMEN KUB CLINICAL INDICATION: Constipation. COMPARISON: None available. TECHNIQUE: AP view of the abdomen. FINDINGS: There is moderate scattered stool and gas in colon without distention. No evidence of organomegaly. No bony abnormalities. XR/XR KUB IMPRESSION: Moderate constipation.
== END 2023-08-01 12:44 | disposition home or self-care (01) ==
LOC: HO.HMGCX 12:43
PROVIDERS: PCP Internal Medicine; Visit Provider Internal Medicine
DX: K59.00 Constipation, unspecified (principal)
CPT/HCPCS: 74018

== ENCOUNTER 2023-08-12 09:14 | Outpatient (REF) | payer MEDICARE, MEDICAID, SELFPAY ==
[2023-08-12 09:28] LABS: Appearance Urine Clear; Color Urine Yellow; Glucose Urine UA Negative (Negative); Leukocyte Esterase Urine Negative (Negative); Nitrite Urine Negative (Negative); Specific Gravity - Urine 1.015 (1.005-1.025); Urine Blood Negative (Negative); Urine Ketones Negative (Negative); Urine Protein Negative (Neg-Trace)
== END 2023-08-12 09:15 | disposition home or self-care (01) ==
LOC: HO.LNP 09:14
PROVIDERS: Visit Provider Physician Assistant
DX: N39.0 Urinary tract infection, site not specified (principal)
CPT/HCPCS: 81003; 87086

== ENCOUNTER 2023-09-22 12:30 | Outpatient (AMB) | payer MEDICARE, MEDICAID, SELFPAY ==
--- NOTE | 2023-09-22 12:33 | MHC.PC.OV ---
Vital Signs 09/22/23 12:41 Height 5 ft 2 in Weight 95 lb BMI 17.4 BP 120/82 Blood Pressure Location Lt brachial Position Sitting Pulse 79 Pulse Source Pulse Oximeter Pulse Oximetry (%) 98 Oxygen Delivery Method Room Air Intake Visit Reasons: Annual PE Intake Note: Pt is here today for her PE Allergies citalopram [From Celexa] Allergy (Unknown, Verified 09/24/23 21:47) Unknown nitrofurantoin [From Macrodantin] Allergy (Unknown, Verified 09/24/23 21:47) Unknown Medication List - Last Reconciled 09/22/23 by Madelin Reyes MD acetaminophen 480 mg (15 mL) PO Q6H PRN bacitracin zinc (Antibiotic (bacitracin zinc)) 1 appl topical TID PRN baclofen 10 mg PO BID baclofen 20 mg PO PRN carbamide peroxide 6.5% (Debrox) 5 drps otic (ear) left .once a month cholecalciferol (vitamin D3) 1,250 mcg PO QWEEK 3 months docusate sodium 100 mg PO BID emollient combination no.69 (Eucerin Skin Calming cream) Apply once a day as directed topically QD; [lightweight manual wheelchair As directed] miscellaneous medical supply lift chair as directed; oxybutynin chloride ER 10 mg PO QPM phenazopyridine (Azo Urinary Pain Relief) 199 mg PO Q6H PRN Tobacco use date assessed: 09/22/23 Dental Screening Dental Screen Date: 09/22/23 HPI Annual PE HPI Details 53-year-old lady with cerebral palsy, dyslipidemia, developmental nonverbal disorder, with gait instability, urinary incontinence and history of vitamin-D deficiency, here today accompanied by caregiver at her half-way, here today for her physical exam. As per caregiver, patient has been eating well, eats 3 meals a day with good appetite. Has not had any choking spells. She has had couple of urinary incontinence wherein she was not unable to make it to the bathroom in time, but this has been few and far between, currently on oxybutynin for bladder control. She was recently seen by her ER all urologist with straight catheterization done for urine collection which did not show any UTI. No change in her treatment. She has not had a screening mammogram, unable to tolerate procedure, and also has refused to get any Pap smear/pelvic exam done. She was last seen by her OB in 2021. She is overdue for colon cancer screening, and is due for her flu vaccine. [facility] Medical History (Updated 09/24/23 @ 22:19 by Madelin Reyes MD) Underweight Vitamin D deficiency History of COVID-19 Weight loss, unintentional Gait instability Dyslipidemia Cerebral palsy Constipation Urinary incontinence Ataxia Surgical History No history of previous surgery Family History Mother Fibromyalgia Osteoporosis Social History Housing: Other Housing Other:: half-way Alcohol intake: never Patient Tobacco Use Status: Never used Tobacco e-Cigarette/Vaping Use: Never Used Current occupational status: disabled Gender identity: Female Cognitive needs: Yes Hearing needs: No Vision needs: No Female Reproductive History Menstrual Date of menopause: 01/13/21 Questionnaire PHQ-9 Over the last 2 weeks, how often have you been bothered by any of the following problems? Depression Screening Done: [place] 12480 - PHQ-9 Billing: Patient declined-do not bill (Unable to assess, patient with CP, non-verbal) Source: Developed by Drs. Mateo Valentine, Bia Vazquez, Gordo Barnes and colleagues, with an educational noy from [employer]. Thrive Questionnaire Date Thrive assessed: 09/22/23 I am a: Parent/Caregiver What is your living situation today?: I have a steady place to live Within the past 12 months, did the food you bought not last and you didn't have the money to get more?: Never true Within the past 12 months, did you worry whether your food would run out before you got money to buy more?: Never true Do you have trouble paying for medicines?: No Do you have trouble getting transportation to medical appointments?: No Do you have trouble paying your heating and electricity bill?: No Do you have trouble taking care of your child, family member or friend?: No Do you have trouble with day-to-day activities such as bathing, preparing meals, shopping, managing finances, etc.?: No Are you currently unemployed and looking for a job?: No Are you interested in more education?: No Currently or been in a relationship where the following occur: no concerns reported DUTCH-7 AMB Questionnaire DUTCH-7 Date DUTCH - 7 assessed: 09/22/23 Source: Developed by Drs. Mateo Valentine, Bia Vazquez, Gordo Barnes and colleagues, with an educational noy from [employer]. DUTCH-7 Assessment Billing DUTCH-7 Assessment Tool: pt declined-do not bill (Patient with cerebral palsy, nonverbal) Review of Systems Const Unobtainable due to mental condition (hx obtained from mother ) Reports as per HPI, Denies anorexia, Denies excessive sweating, Denies fever(s), Denies poor appetite and Denies weakness ENT Denies ear discharge, Denies mouth lesions, Denies nasal congestion and Denies nasal discharge Card Denies diaphoresis, Denies leg edema and Denies dyspnea Resp Denies cough, Denies excessive phlegm production, Denies dyspnea and Denies wheezing GI Denies melena, Denies hematochezia, Denies change in bowel habits, Denies excessive flatus and Denies vomiting Reports as per HPI and Denies hematuria Musc Reports abnormal gait Neuro Reports Abnormal speech present, Reports abnormal gait and Denies weakness Endo Denies excessive sweating, Denies polydipsia and Denies polyuria Alonso/Lymph Denies easy bleeding and Denies easy bruising Aller/Immun Denies GI upset with certain foods, Denies seasonal rhinorrhea and Denies wheezing Physical exam (Primary Care) Vital Signs: Last Vital Signs Pulse 79 09/22/23 12:41 BP 120/82 09/22/23 12:41 Pulse Ox 98 09/22/23 12:41 Oxygen Delivery Method Room Air 09/22/23 12:41 BMI result Body Mass Index 17.4 Tobacco/Smoking Status: Tobacco use Status Tobacco use date assessed 09/22/23 09/22/23 12:35 Patient Tobacco Use Status Never used Tobacco 09/22/23 12:35 e-Cigarette/Vaping Use Never Used 09/22/23 12:35 PHQ-9: PHQ-9 Score PHQ-9: Total score 0 09/22/23 13:40 Thrive Assessment: Date of Thrive Assessment Date Thrive assessed 09/22/23 09/22/23 12:49 Currently or been in a relationship where the following occur: no concerns reported Advance Care Planning discussion: Exists, not on file Date of discussion: 09/22/23 Who was present: [facility] caregiver and patient Time spent: 1-15 minutes, not on file Actual minutes spent: 15 Const General: cooperative, comfortable and no acute distress Nutritional Appearance: average body habitus Limitations: behavioral limitations, language barrier and physical limitations HENMT Head: Yes normocephalic and Yes atraumatic Ears: external ears normal, TM's normal bilaterally and EAC's normal General nose exam: Normal external nose present and No nasal discharge present Mouth: Normal oral and palatal mucosa present, lip normal and moist mucous membranes Eyes General: appearance normal, both eyes and all related structures Neck Neck: Yes full ROM, Yes no lymphadenopathy and Yes supple Chest Breast/axilla inspection: normal inspection of the breasts Breast/axilla palpation: normal palpation of the breasts Cardio Rate: regular rate Rhythm: regular rhythm Heart sounds: S1 normal heart sound present and S2 normal heart sound present GI Inspection: Yes normal to inspection Palpation (GI): Soft to palpation, nontender, no guarding and no masses Auscultation: normal bowel sounds General: Yes no CVA tenderness and Yes deferred (Sees sees OBGYN) Back/Spine/Pelvis Back: no CVA tenderness and No back tenderness Skin General skin exam: no rashes or lesions noted Neuro General: moves all extremities and no focal motor deficits Cognition (Neuro): abnormal cognition Speech: Abnormal speech present Motor exam (neuro): 5/5 motor strength present throughout Extrem General: Yes full ROM, Yes no joint enlargement, Yes no pedal edema and Yes no calf tenderness Office Procedures Flu Questionnaire Does the patient have a severe egg allergy?: No Does the patient have severe life threatening allergies?: No Does the patient have a fever or illness today?: No Has the patient ever had Guillain-[place] Syndrome?: No Has the patient ever had any past reaction to a flu shot?: No Immunizations flu vacc [id number] 6mos up(PF) 60 mcg(15 mcgx4)/0.5 mL IM syringe Performing Provider: Madelin Reyes MD Performing Location: [facility] Administered by: Juju Sorensen CMA on 09/22/23 12:58 Dose Route Admin Location Dispensed Lot Number Expiration Date NDC Packing Machine Can Feeder 0.5 mL IM Left Deltoid 0.5 mL [id number] 05/26/24 [id number] [employer] VIS Given Date VIS Provided VIS Publication Date 09/22/23 Single Vaccine 21 Eligibility Eligibility Date Funding Source Not [facility] Eligible 09/22/23 Private Results Reviewed Results Reviewed: ENTERED: 07/26/23 [facility] [address]: ORDERED: CBC Auto Diff Test Result Flag Reference Site WBC 7.7 4.8-10.8 X10*3/uL RBC 4.02 L 4.20-5.50 X10*6/uL HGB 12.6 12.0-16.0 g/dl HCT 38.2 37.0-47.0 % MCV 95.0 80.0-98.0 fL MCH 31.3 27.0-33.0 pg MCHC 33.0 31.0-35.0 g/dl RDW 12.4 11.0-16.0 % PLT 186 160-400 X10*3/uL Name: Lotus Roberts Age/Sex: 53/F : 1970 Unit#: [id number] Attend Dr: Gabriela Ramos MD Re07/26/23 Status: [facility]P [facility] Disch: SPEC : [id number] DENIA: 07/26/23 STATUS: COMP REQ : [id number] RECD: 07/26/[address]: Gabriela Ramos MD COMP: 07/26/237 ENTERED: 07/26/23 [facility] [address]: ORDERED: Liver Panel, BMP Test Result Flag Reference Site Sodium 139 135-145 mmol/L Potassium 4.1 3.3-5.1 mmol/L CL 105 96-108 mmol/L CO2 27 22-29 mmol/L Gap 11 L 12-20 BUN 17 H 9-16 mg/dL Creat 0.72 0.5-1.4 mg/dL Estimated CrCl 68.9 Provided height and weight: 157.48 cm, 48.9 kg. eGFR (calculated from the MDRD study equation) and eCrCl (calculated from the Cockcroft-Gault equation) are based on different parameters and may not yield comparable results. If eCrCl result is absurd, please check patient's height/weight. EGFR > 60 NOTE: For -Luxembourger individuals, multiply the result by 1.210. Chronic Kidney Disease: Estimated GFR < 60 mL/min/1.73m2 Severe Kidney Disease: Estimated GFR < 15 mL/min/1.73m2 Glucose, Random 105 60-115 mg/dL CA 9.3 8.4-10.2 mg/dL Total Bili 0.6 0.0-1.0 mg/dL Direct Bili 0.3 0.0-0.5 mg/dL AST (GOT) 18 5-31 U/L ALT (GPT) 20 0-31 U/L Protein, Total 6.6 6.5-8.0 g/dL Alb 3.8 3.5-5.0 g/dL Alk Phos 89 39-117 U/L RUN: 09/24/23 3919 PAGE 1 [facility] [address] [place] [id number] Screw Machine Operator [employer] Type: Randy Deng M.D. Specimen Inquiry Name: Lotus Roberts Age/Sex: 53/F : 1970 Unit#: [id number] Attend Dr: Madelin Reyes MD Re07/21/23 Status: DEP REF Location: [id number] Disch: SPEC : [id number] DENIA: 07/21/23 STATUS: COMP REQ : [id number] RECD: 07/21/23-[address]: Madelin Reyes MD COMP: 07/21/23-1259 ENTERED: 07/21/23-51 [facility] [address]: ORDERED: CMP Fast, Lipid Panel, Vitamin D 25-OH, TSH Rflx Test Result Flag Reference Site Sodium 141 135-145 mmol/L Potassium 4.0 3.3-5.1 mmol/L CL 106 96-108 mmol/L CO2 26 22-29 mmol/L Gap 13 12-20 BUN 15 9-16 mg/dL Creat 0.99 0.5-1.4 mg/dL EGFR 58 NOTE: For -Luxembourger individuals, multiply the result by 1.210. Chronic Kidney Disease: Estimated GFR < 60 mL/min/1.73m2 Severe Kidney Disease: Estimated GFR < 15 mL/min/1.73m2 FBS 91 60-99 mg/dL CA 9.7 8.4-10.2 mg/dL Total Bili 1.1 H 0.0-1.0 mg/dL AST (GOT) 19 5-31 U/L ALT (GPT) 26 0-31 U/L Protein, Total 7.3 6.5-8.0 g/dL Alb 4.1 3.5-5.0 g/dL Triglyceride 61 <150 mg/dL Desirable Triglyceride: less than 150 mg/dL Borderline High Triglyceride 150-199 mg/dL High Triglyceride: 200-499 mg/dL Very High Triglyceride: greater than or equal to 5OO mg/dL Cholesterol 148 <200 mg/dL Desirable Cholesterol: less than 200 mg/dL Borderline High Cholesterol: 200-239 mg/dL High Cholesterol: greater than 239 mg/dL LDL Calculated 80 <100 mg/dL Desirable LDL: less than 100 mg/dL Near Optimal/Above Optimal LDL: 110-129 mg/dL Borderline High LDL: 130-159 mg/dL High LDL: 160-189 mg/dL Very High LDL: greater than or equal to 190 mg/dL HDL 56 >40 mg/dL Desirable HDL: greater than 40 mg/dL Note: This HDL assay may give artificially low results in patients with liver disease. Alk Phos 116 39-117 U/L Vit D 25-OH Tot 17.6 >30 ng/mL Health Based Reference Values* Assessment and Plan Assessment & Plan (1) Annual visit for general adult medical examination with abnormal findings: Code(s): Z00.01 - Encounter for general adult medical examination with abnormal findings Plan: Will check appropriate labs. Recommended dental visit every 6 months and regular eye exams, at least every 2 years. Take adequate calcium in diet and vitamin-D 3 at 2000 IU per cap once a day, in addition to weight-bearing exercises to help maintain good muscle tone and weight control. Instructed to do self-breast exam, however unable to get mammogram as patient could not tolerate procedure. Cologuard testing ordered for colon cancer screening. Flu vaccine given today, reminded caregiver to to a patient get her COVID booster and is also due for shingles vaccination which can be given at the pharmacy, currently up-to-date with her Tdap. (2) Cerebral palsy: Code(s): G80.9 - Cerebral palsy, unspecified (3) Vitamin D deficiency: Code(s): E55.9 - Vitamin D deficiency, unspecified Plan: Will repeat another vitamin-D level in the meantime currently still taking vitamin-D 3 supplements (4) Urinary incontinence: Code(s): R32 - Unspecified urinary incontinence Plan: Followed by Urology currently on oxybutynin chloride ER 10 mg daily (5) Underweight: Code(s): R63.6 - Underweight Plan: Referred to pay station attendant for dietary guidance Orders: Orders Influenza [id number] Immunization 09/22/23 Z23 - Encounter for immunization Vitamin D 25-OH Total 09/22/23 Z12.11 - Encounter for screening for malignant neoplasm of colon, Z12.12 - Encounter for screening for malignant neoplasm of rectum Referrals Cologuard Test Z12.11 - Encounter for screening for malignant neoplasm of colon, Z12.12 - Encounter for screening for malignant neoplasm of rectum Medications: New acetaminophen 500 mg PO Q6H PRN 100 caps 1RF fever up to 100 degrees F or as needed for pain Changed From bacitracin zinc (Antibiotic (bacitracin zinc)) 1 appl topical TID PRN 14 grams 0RF Skin infection To bacitracin zinc (Antibiotic (bacitracin zinc)) Apply small amount topically q.8 hours as needed for scratches and abrasions. Do not exceed 3 doses in 24 hours 1 appl topical Q8H PRN 14 grams 0RF Skin infection Discontinued acetaminophen Discontinued Reason: Doctor's Order 480 mg (15 mL) PO Q6H PRN 473 mL 0RF fever or pain Coding Level of Care Code Est Pt Prev Care 40-64y(36751) Diagnoses Annual visit for general adult medical examination with abnormal findings Z00.01 Cerebral palsy G80.9 Vitamin D deficiency E55.9 Urinary incontinence R32 Underweight R63.6 Additional Codes Vital Signs *Quality* - Advance Care Planning discussion: Exists, not on file ([id number]) Vital Signs *Quality* - Time spent: 1-15 minutes, not on file ([id number])
[2023-09-22 12:41] VITALS: BP 120/82; PULSE 79; O2SAT 98; BMI 17.4
== END 2023-09-22 13:50 | disposition home or self-care (01) ==
PROVIDERS: PCP Internal Medicine; Visit Provider Internal Medicine
DX: Z00.00 Encounter for general adult medical examination without abnormal findings (principal); G80.9 Cerebral palsy, unspecified; E55.9 Vitamin D deficiency, unspecified; R32 Unspecified urinary incontinence; R63.6 Underweight
CPT/HCPCS: 1123F; 90471; 90686; 99396

== ENCOUNTER 2023-11-06 14:12 | Outpatient (REF) | payer MEDICARE, MEDICAID, SELFPAY ==
--- NOTE | ~2023-11-06 | FL_ITS ---
EXAMINATION: Modified Barium Swallow CLINICAL INFORMATION: Dysphagia. COMPARISON: None. TECHNIQUE: Modified barium swallow was performed under lateral fluoroscopy with patient in standing position. The patient was given barium mixed with both liquid and solids of varying consistencies. FINDINGS: Aspiration was seen with puree consistency liquids. Patient then became uncooperative with the exam, therefore the procedure was terminated. Number of Spot Images: 1 DOSE AREA PRODUCT: 995 uGy-m2 (microgray-meter squared) FL/FL barium swallow modified IMPRESSION: Incomplete exam due to patient's refusal to cooperate during the examination. Aspiration was seen with puree consistency barium. Refer to the dedicated speech therapy report for further clarification.
--- NOTE | 2023-12-05 13:20 | MHC.SL.IMP ---
Date of Plan of Treatment: 11/06/23 Onset of Symptoms/Illness: 11/06/23 Date Treatment Started: 11/06/23 Admitting Diagnosis: Dysphagia Primary Speech & Language Diagnosis: R13.12 Oropharyngeal Phase Dysphagia Reason for Today's Visit: 89699 Modified Barium Swallow Study Pre-evaluation Dietary Consistencies: Soft Food Pre-evaluation Liquid Consistency: Thin Pre-evaluation Medication Administration: UNK Medical History: Modified Barium Swallow Study Fluoroscopic Evaluation of Swallowing Function CPT Code 62746 Evaluation Year: 2023 Reason for Study: Reports of pt choking Referring Physician: Madelin Reyes MD Evaluating Clinician: Cece Gonzalez MA, CCC-[facility] TECHNICIAN Study Number: 1 Patient Name: Lotus Roberts Status: Outpatient, Wheelchair Age: 53 Gender: Female Medical History Medical History (Updated 09/24/23 @ 22:27 by Madelin Reyes MD) Underweight Vitamin D deficiency History of COVID-19 Weight loss, unintentional Gait instability Dyslipidemia Cerebral palsy Constipation Urinary incontinence Ataxia Current (pre-evaluation) Intake/Diet: Route: PO Diet Grade: ?Soft food? Liquid Consistencies: Thin Pre-Study Functional Oral Intake Scale (FOIS): 5- Total oral intake of multiple consistencies requiring special preparation Pain: None reported at time of study SUBJECTIVE: Pt is a 53 year old female with history significant for cerebral palsy, developmental delay, gait instability, and ataxia. Pt is reportedly nonverbal and currently resides in a prison. She was referred for a modified barium swallow study after staff from [facility] noticed pt was sometimes choking during meal time. They report pt?s food is prepared soft and ?mushed.? Additionally, pt?s mother reported that pt has been losing weight, though she seems to be eating ok, is also reportedly drooling and eating slowly. Pt was accompanied to this exam by her mother, Kay Roberts, and the residential sales executive from [facility]. Food and Liquid Trials: Oral Impairment: Lip Closure: 4=Escape progressing to mid-chin. Oral Impairment: Tongue Control During Bolus Hold: Did not test Oral Impairment: Bolus Preparation/Mastication: 2=Disorganized chewing/mashing with solid pieces of bolus Oral Impairment: Bolus Transport/Lingual Motion: 3=Repetitive/disorganized tongue motion Oral Impairment: Oral Residue: 2=Residue collection on oral structures Oral Impairment:Initiation of Pharyngeal Swallow: 2=Bolus head at posterior laryngeal surface of epiglottis Pharyngeal Impairment: Soft Palate Elevation: 0=No bolus between soft palate (SP)/pharyngeal wall (PW) Pharyngeal Impairment: Laryngeal Elevation: 1=Partial thyroid cartilage/arytenoids to epiglottic petiole movement Pharyngeal Impairment: Anterior Hyoid Excursion: 1=Partial anterior movement Pharyngeal Impairment: Epiglottic Movement: 1=Partial inversion Pharyngeal Impairment: Laryngeal Vestibular Closure:: 2=None: No inversion Pharyngeal Impairment: Pharyngeal Stripping Wave: 0=Present: complete Pharyngeal Impairment: Pharyngeal Contraction: Did not test Pharyngeal Impairment: Pharyngoesophageal Segment Openin=Complete distension and complete duration: no obstruction of flow Pharyngeal Impairment: Tongue Base (TB) Retraction: 3=Wide column of contrast/air between TB and posterior PW Pharyngeal Impairment: Pharyngeal Residue: 2=Collection of residue within or on pharyngeal structures Pharyngeal Impairment: Esophageal Clearance Upright Position: Did not test Impressions and Recommendations OBJECTIVE: Time-out: performed at 15:00 Evaluation Start: 14:30; Stop: 14:40 Patient Positioning: Seated 70-90 degrees Viewing Planes: LATERAL ONLY Contrast: MBSImP? Standardized Protocol using commercially prepared, standardized Barium viscosities, including: Varibar? THIN LIQUID (40% w/v, <15 cps) , Varibar? THIN HONEY (40% w/v, <800-1800 cps) , 1/2 Shortbread Cookie (1 x1 x.25 ) MBSImP ID: [id number] [facility]: Lip closure for intraoral bolus containment resulted in bolus escape that progressed to the mid-chin. Tongue control during bolus hold could not be assessed due to logistical reasons not related to physiologic impairment. Bolus preparation and mastication demonstrated disorganized chewing/mashing with solid pieces of the bolus unchewed. Bolus transport/lingual motion was with repetitive/disorganized motion of the tongue. Oral residue was a collection on oral structures. Initiation of the pharyngeal swallow occurred as the bolus head was at the posterior laryngeal surface of the epiglottis. Soft palate elevation resulted in no bolus between the soft palate and the pharyngeal wall. Laryngeal elevation was decreased, with partial superior movement of the thyroid cartilage/partial approximation of the arytenoids to the epiglottic petiole. Anterior hyoid excursion demonstrated partial anterior movement. Epiglottic movement resulted in partial inversion. Laryngeal vestibular closure was absent, resulting in a wide column of air/contrast within the laryngeal vestibule at the height of the swallow. Pharyngeal stripping wave was present and complete. Pharyngeal contraction could not be determined due to logistical reasons not related to physiologic impairment. Pharyngoesophageal segment opening was completely distended for complete duration with no obstruction of bolus flow. Tongue base retraction allowed a wide column of contrast or air between the retracted tongue base and the posterior pharyngeal wall. Pharyngeal residue was a collection of residue within or on pharyngeal structures. Esophageal clearance in the upright position could not be assessed due to logistical reasons not related to physiologic impairment. Oral Impairment Score: 12 (absence of score, component 2) Pharyngeal Impairment Score: 10 (absence of score, component 13) Esophageal Impairment Score: --- (absence of score, component 17) Laryngeal Penetration and Aspiration: Both Penetration and Aspiration were observed in today's study. Thin Contrast entered the airway, contacted the vocal folds, and was ejected from the airway. Puree entered the airway, passed below the vocal folds, and no effort was made to eject. ASSESSMENT: Clinician Assessment: This exam was performed by the radiologist and the speech pathologist. Pt was seated in her wheelchair for lateral view only. Pt required total assistance feeding and trialed the following textures: thin liquid barium by cup, honey thick liquid barium by cup, pureed solid (applesauce mixed with barium paste), regular solid (Charla Doone shortbread cookie coated with barium paste). Despite significant cues, pt continued to hold her hand on her neck, obstructing lateral view of the pharynx. Pt also leaned both forward and backward. This exam was limited by these postural difficulties, motion artifact, and eventually, pt?s refusal of further trials. Pt demonstrated escape from lips progressing to the mid-chin. Pt demonstrated vertical chewing pattern as well as piece meal deglutition. Pt chewed, swallowed partial bolus, chewed remaining bolus, and swallowed again to clear the bolus from the oral cavity. Posterior lingual motion was delayed, at times characterized by repetitive and maladaptive tongue rocking movements. There was mild residue on the tongue and palate which partially cleared with subsequent swallows. Pharyngeal swallow trigger initiated as the bolus head reached the posterior laryngeal surface of the epiglottis. There was no nasopharyngeal reflux. Incomplete laryngeal elevation. Incomplete epiglottic inversion and incomplete laryngeal vestibular closure resulted in episodes of aspiration. There was evidence of gross aspiration during the swallow at least on pureed solid. A wide column of contrast entered the airway below the level of the vocal folds and no spontaneous cough was elicited by the pt. Pt did not follow commands for a volitional cough. On thin liquid, there was penetration above the vocal folds when pt took a single sip and to the level of the vocal folds as pt took sequential sips. Again, there was no spontaneous cough reflex when contrast had entered the airway. There did not appear to be any aspiration visible during the swallow on honey thick and regular solid textures. However, because the pt exhibited difficulty remaining in an upright position, unable to rule in/out aspiration after the swallow on other textures during this exam. There was mild collection of residue on the tongue base, on the posterior pharyngeal wall, and in the valleculae, which reduced with subsequent swallows. At this point, pt began shouting, turning her head away, and refusing subsequent trials. Exam was discontinued. Liquid Intake Recommendation: Thin Liquid Intake Strategies: Small Sips, No Straws, Double Swallow Dietary Recommendations: Grnd/Mech Altered (NDD2) Medication Administration: Crushed with Puree Please contact the pharmacy regarding appropriate crushable or liquid drug formulations that are available whenever modified delivery is recommended. Compensatory Strategies Recommended: Sitting Upright (90 deg), Double Swallow, No Straw, Liquids from Spoon, Small Bites and Sips, Rate of Ingestion Change, Oral Check, Avoid Specific Foods Supervision during eating and or drinking: Total Assistance (1:1) Recommendation for Speech Therapy: Modified Barium Swallow Study - Outpatient Text Comment: PLAN: Intake Recommendations: Route: PO Diet Grade: Mechanical Soft Liquid Consistencies: Thin Post-Study Functional Oral Intake Scale (FOIS): 5- Total oral intake of multiple consistencies requiring special preparation Unable to rule out aspiration on certain food and liquid trials due to postural difficulties, motion artifact, and eventually, pt?s refusal of further trials. Therefore diagnostic accuracy of this examination is limited. At the least, there was evidence of gross aspiration during the swallow on pureed texture. Also noted penetration above and to the level of the vocal folds on thin liquid. There did not appear to be any aspiration visible during the swallow on honey thick and regular solid textures. However, because the pt exhibited difficulty remaining in an upright position, unable to rule in/out aspiration after the swallow with imaging. Recommend a repeat-MBSS to re-evaluate the extent of pt?s oropharyngeal dysphagia, to trial behavioral strategies, and to identify safest and least restrictive dietary recommendations. Based on observations made during this exam, it is evident that pt is at risk for aspiration, at least on mixed pureed textures. Pt also evidenced penetration on liquids. In the meantime, pt is recommended to continue her soft diet at home and to AVOID textures that are similar to applesauce (that have lumps, may separate, or have a liquid component). Ensure food is cohesive and homogenous and that any sauce or gravy is thick and blended in well with food. Other general precautions are also recommended to maximize safety: minimize distractions during meal time, give small bites of food, ensure pt?s mouth is clear and observe for swallow before giving more bites, prompt pt for dry swallow between bites and sips, avoid the use of straws, give small, individual sips by teaspoon or controlled cup. Maintain frequent oral care, before first meal and after each subsequent meal. Specific goals for dysphagia treatment and further recommendations to follow pending re-evaluation. Therapy Recommendations: Repeat-MBSS, likely followed with further support/follow-up and/or dysphagia treatment Clinician - Supplemental, Miscellaneous Communication: It is important to note MBSS objective studies are snapshots in time and Patient function might vary with factors such as time of day or concomitant medical conditions. For this reason, the final treatment plan for this patient should rest with their medical care team. Additional recommendations should be considered with the totality of the Patient in mind. Thank for the opportunity to participate in the care of this patient. If you have any questions about the content of this report, please contact the [facility] at [facility]. Education: Education regarding findings from today's study and plans for therapy were provided to Patient and family/caregiver through Verbal Instruction. Understanding was expressed by the Patient and family/caregiver. Denture Processor Clinician/Clinical Fellow: No Supervisory Statement: N/A Speech Language Pathologist: Cece Gonzalez M.A., [facility] TECHNICIAN
== END 2023-11-06 14:13 | disposition home or self-care (01) ==
LOC: HO.XRAY 14:12
PROVIDERS: PCP Internal Medicine; Visit Provider Internal Medicine
DX: R13.10 Dysphagia, unspecified (principal)
CPT/HCPCS: 74230; 92611

== ENCOUNTER → 2023-11-06 14:14 | Outpatient (BNV) | payer MEDICARE, MEDICAID, SELFPAY | PROVIDERS: PCP Internal Medicine; Visit Provider Radiology Diagnostic Radiology | DX: R13.10 Dysphagia, unspecified (principal) | CPT/HCPCS: 74230 ==

== ENCOUNTER 2024-01-24 14:13 | Outpatient (REF) | payer MEDICARE, MEDICAID, SELFPAY ==
--- NOTE | ~2024-01-24 | FL_ITS ---
EXAMINATION: Modified Barium Swallow CLINICAL INFORMATION: Dysphagia COMPARISON: None TECHNIQUE: Modified barium swallow was performed under lateral fluoroscopy with patient in standing position. Patient was given barium mixed with solids and liquids of varying consistencies by the speech pathologist. The exam was recorded in the fluoroscopy Department. FINDINGS: There was intermittent trace laryngeal penetration with thin, puree, ground, and regular solid barium consistencies. Aspiration was seen with nectar thick liquid. FLUOROSCOPY TIME: 4 minutes 44 seconds Number of Spot Images: 1 DOSE AREA PRODUCT: [id number] uGy-m2 (microgray-meter squared) FL/FL barium swallow modified IMPRESSION: There was intermittent trace laryngeal penetration with thin, puree, ground, and regular solid barium consistencies. Aspiration was seen with nectar thick liquid. Refer to the full speech therapy report for further clarification This procedure was performed by Nico Bee PA-C, and supervised by Dr. Cordero
--- NOTE | 2024-01-30 16:54 | MHC.SL.IMP ---
Date of Plan of Treatment: 01/24/24 Onset of Symptoms/Illness: 11/06/23 Date Treatment Started: 11/06/23 Admitting Diagnosis: Dysphagia Primary Speech & Language Diagnosis: R13.12 Oropharyngeal Phase Dysphagia Reason for Today's Visit: 64322 Modified Barium Swallow Study Pre-evaluation Dietary Consistencies: Soft Foods Pre-evaluation Liquid Consistency: Thin Pre-evaluation Medication Administration: UNK Medical History: Modified Barium Swallow Study Fluoroscopic Evaluation of Swallowing Function CPT Code 17867 Evaluation Year: 2023 Reason for Study: Hx dysphagia Referring Physician: Madelin Reyes MD Evaluating Clinician: Cece Gonzalez MA, CCC-BAILING MACHINE OPERATOR Study Number: 1 Patient Name: Lotus Parkinson Status: Outpatient, Wheelchair Age: 54 Gender: Female Medical History Medical History (Updated 09/24/23 @ 22:27 by Madelin Reyes MD) Underweight Vitamin D deficiency History of COVID-19 Weight loss, unintentional Gait instability Dyslipidemia Cerebral palsy Constipation Urinary incontinence Ataxia Current (pre-evaluation) Intake/Diet: Route: PO Diet Grade: ?Soft foods? Liquid Consistencies: Thin Pre-Study Functional Oral Intake Scale (FOIS): 5- Total oral intake of multiple consistencies requiring special preparation Pain: None reported at time of study SUBJECTIVE: Pt is a 54 year old female with history significant for cerebral palsy, developmental delay, gait instability, and ataxia. Pt is mostly nonverbal and currently resides in a fci. She was previously referred for a modified barium swallow study (MBSS) after staff from pt?s fci noticed pt was choking during meal time. MBSS in October did show gross aspiration on pureed texture, but was otherwise a limited exam due to difficulties positioning the patient and motion artifact. Thus patient returns today to repeat the exam per BAILING MACHINE OPERATOR?s recommendation to further evaluate the extent of patient?s dysphagia and to provide feeding recommendations. Patient is accompanied to this exam by her sister and a residential substance abuse counselor from her fci. Patient is reportedly eating soft foods at the fci and eats a variety of foods including pasta. Food and Liquid Trials: Oral Impairment: Lip Closure: 4=Escape progressing to mid-chin. Oral Impairment: Tongue Control During Bolus Hold: Did not test Oral Impairment: Bolus Preparation/Mastication: 2=Disorganized chewing/mashing with solid pieces of bolus Oral Impairment: Bolus Transport/Lingual Motion: 3=Repetitive/disorganized tongue motion Oral Impairment: Oral Residue: 2=Residue collection on oral structures Oral Impairment:Initiation of Pharyngeal Swallow: 2=Bolus head at posterior laryngeal surface of epiglottis Pharyngeal Impairment: Soft Palate Elevation: 0=No bolus between soft palate (SP)/pharyngeal wall (PW) Pharyngeal Impairment: Laryngeal Elevation: 1=Partial thyroid cartilage/arytenoids to epiglottic petiole movement Pharyngeal Impairment: Anterior Hyoid Excursion: 1=Partial anterior movement Pharyngeal Impairment: Epiglottic Movement: 2=No inversion Pharyngeal Impairment: Laryngeal Vestibular Closure:: 1=Incomplete: narrow column air/contrast in laryngeal vestibule Pharyngeal Impairment: Pharyngeal Stripping Wave: 0=Present: complete Pharyngeal Impairment: Pharyngeal Contraction: Did not test Pharyngeal Impairment: Pharyngoesophageal Segment Openin=Complete distension and complete duration: no obstruction of flow Pharyngeal Impairment: Tongue Base (TB) Retraction: 3=Wide column of contrast/air between TB and posterior PW Pharyngeal Impairment: Pharyngeal Residue: 2=Collection of residue within or on pharyngeal structures Pharyngeal Impairment: Esophageal Clearance Upright Position: Did not test Impressions and Recommendations OBJECTIVE: Time-out: performed at 15:00 Evaluation Start: 14:30; Stop: 14:35 Patient Positioning: Seated 70-90 degrees Viewing Planes: LATERAL ONLY Contrast: MBSImP? Standardized Protocol using commercially prepared, standardized Barium viscosities, including: Varibar? THIN LIQUID (40% w/v, <15 cps) , Varibar? NECTAR (40% w/v, <150-450 cps) , 1/2 Shortbread Cookie (1 x1 x.25 ) MBSImP ID: [id number] MBSImP Results: Lip closure for intraoral bolus containment resulted in bolus escape that progressed to the mid-chin. Tongue control during bolus hold could not be assessed due to logistical reasons not related to physiologic impairment. Bolus preparation and mastication demonstrated disorganized chewing/mashing with solid pieces of the bolus unchewed. Bolus transport/lingual motion was with repetitive/disorganized motion of the tongue. Oral residue was a collection on oral structures. Initiation of the pharyngeal swallow occurred as the bolus head was at the posterior laryngeal surface of the epiglottis. Soft palate elevation resulted in no bolus between the soft palate and the pharyngeal wall. Laryngeal elevation was decreased, with partial superior movement of the thyroid cartilage/partial approximation of the arytenoids to the epiglottic petiole. Anterior hyoid excursion demonstrated partial anterior movement. Epiglottic movement resulted in no inversion. Laryngeal vestibular closure was incomplete, with a narrow column of air/contrast noted within the laryngeal vestibule at the height of the swallow. Pharyngeal stripping wave was present and complete. Pharyngeal contraction could not be determined due to logistical reasons not related to physiologic impairment. Pharyngoesophageal segment opening was completely distended for complete duration with no obstruction of bolus flow. Tongue base retraction allowed a wide column of contrast or air between the retracted tongue base and the posterior pharyngeal wall. Pharyngeal residue was a collection of residue within or on pharyngeal structures. Esophageal clearance in the upright position could not be assessed due to logistical reasons not related to physiologic impairment. Oral Impairment Score: 12 (absence of score, component 2) Pharyngeal Impairment Score: 10 (absence of score, component 13) Esophageal Impairment Score: --- (absence of score, component 17) Laryngeal Penetration and Aspiration: Both Penetration and Aspiration were observed in today's study. Regular texture (shortbread cookie), Ground texture (chicken salad), Puree texture (pudding), and Thin contrast entered the airway intermittently, remained above the vocal folds, and were ejected from the airway. [place]-thick contrast entered the airway, passed below the vocal folds, and no effort was made to eject. ASSESSMENT: This exam was performed by the speech pathologist and the radiologist. Pt was seated upright at 90 degrees in a wheelchair and trialed thin, nectar thick, pureed, ground, and regular solid consistencies. Patient demonstrated weak labial seal, with bolus escape progressing to the mid-chin. Patient demonstrated vertical chewing pattern as well as piece meal deglutition. AP transport was delayed, at times characterized by repetitive and maladaptive tongue rocking movements. There was mild to moderate residue on the tongue and palate, which mostly cleared with subsequent swallows. Pharyngeal swallow trigger was initiated as the bolus head reached the posterior laryngeal surface of the epiglottis. Noted partial laryngeal elevation. Partial, at times absent, epiglottic inversion and incomplete laryngeal vestibular closure. There was penetration above the vocal folds intermittently with thin, puree, ground and regular solid consistencies. A trace amount of contrast entered the airway above the vocal folds and cleared from the trachea. There was evidence of vita aspiration on nectar thick with contrast entering the airway and passing below the vocal folds. Patient did not elicit a spontaneous protective cough. There was mild to moderate residue on the tongue base, on the posterior pharyngeal wall, and in the vallecuale and pyriforms which cleared with dry swallows and bites of puree. Liquid Intake Recommendation: Thin Liquid Intake Strategies: Small Sips, No Straws, Double Swallow Dietary Recommendations: Chopped/Advanced (NDD3) Medication Administration: Crushed with Puree Please contact the pharmacy regarding appropriate crushable or liquid drug formulations that are available whenever modified delivery is recommended. Compensatory Strategies Recommended: Sitting Upright (90 deg), Double Swallow, No Straw, Liquids from Cup, Liquids from Spoon, Small Bites and Sips, Rate of Ingestion Change, Oral Check, Avoid Specific Foods Supervision during eating and or drinking: Total Assistance (1:1) Recommended Treatments: Compens. Strategy Educat. Recommendation for Speech Therapy: Outpatient Speech Therapy (1 f/u) PLAN: Intake Recommendations: Route: PO Diet Grade: Chopped/Advanced- Refer to National Dysphagia Diet Level III Liquid Consistencies: Thin Post-Study Functional Oral Intake Scale (FOIS): 5- Total oral intake of multiple consistencies requiring special preparation Exam revealed moderate oropharyngeal dysphagia. Slowed oral phase characterized by disorganized chewing pattern and repetitive tongue rocking motion. There was trace penetration above the vocal folds intermittently with thin, puree, ground, and regular solid textures. Noted vita aspiration on nectar thick liquid. No protective cough or throat clear was elicited. Mild to moderate residue noted in the oral and pharyngeal cavities, which mostly cleared with dry swallows and additional bites of puree. Patient is recommended a CHOPPED/ADVANCED (NDD3) diet for ease of mastication and THIN liquids to be administered by teaspoon or controlled cup. Patient will require 1:1 assistance with meals, careful feeding and close monitoring given her heightened risk of aspiration. The following strategies are recommended to maximize safety: -Avoid foods which are tough, dry, sticky, or crunchy; avoid mixed consistencies (i.e. soup with solid ingredients, cereal with milk); foods that have lumps, may separate, or have a liquid component (i.e. applesauce) -Ensure food is cohesive and homogenous and that any sauce or gravy is blended in well with food. -Cut food into small, manage-able, bite size pieces -Give one small bite at a time -Ensure patient?s mouth is clear and observe for swallow before giving more bites -Prompt pt for dry swallow between bites and sips to promote oral and pharyngeal clearance -Give small, individual sips of liquid by teaspoon or controlled cup -Avoid the use of straws -Maintain 90 degree position during PO intake and for at least 30 minutes afterwards -Maintain frequent oral care, before first meal and after each subsequent meal Therapy Recommendations: Recommend follow-up visit with a speech pathologist for continued education RE: MBSS results, aspiration risks, recommended dietary modifications, and strategies for feeding. Given the nature of patient?s underlying condition (cerebral palsy), patient will need continued monitoring. Should symptoms change or worsen in regards to her dysphagia, a re-evaluation may be warranted. Short Term Goals: ? Education - The patient, family, caregiver will verbalize/demonstrate understanding of the results of this evaluation, the above recommendations, and the swallowing guidelines. Frequency/Duration: 1 f/u Date Range for Service Requested: Timeline to reassess: 12 months Clinician - Supplemental, Miscellaneous Communication: It is important to note MBSS objective studies are snapshots in time and Patient function might vary with factors such as time of day or concomitant medical conditions. For this reason, the final treatment plan for this patient should rest with their medical care team. Additional recommendations should be considered with the totality of the Patient in mind. Thank for the opportunity to participate in the care of this patient. If you have any questions about the content of this report, please contact the Speech and Hearing Center at [facility]. Education: Education regarding findings from today's study and plans for therapy were provided to Family/caregiver only through Verbal Instruction, Written Instruction. Understanding was expressed by the Family/caregiver only. Waiter Clinician/Clinical Fellow: No Supervisory Statement: N/A Speech Language Pathologist: Cece Gonzalez M.A., CCC-BAILING MACHINE OPERATOR
== END 2024-01-24 14:14 | disposition home or self-care (01) ==
LOC: HO.XRAY 14:13
PROVIDERS: Visit Provider Internal Medicine
DX: R13.12 Dysphagia, oropharyngeal phase (principal)
CPT/HCPCS: 74230; 92611

== ENCOUNTER → 2024-01-24 14:30 | Outpatient (BNV) | payer MEDICARE, MEDICAID, SELFPAY | PROVIDERS: Visit Provider Physician Assistant Surgical | DX: R13.10 Dysphagia, unspecified (principal) | CPT/HCPCS: 74230 ==

== ENCOUNTER 2024-08-02 09:23 | Outpatient (REF) | payer MEDICARE, MEDICAID, SELFPAY ==
[2024-08-02 13:13] LABS: MANUAL DIFF FLAG NO
[2024-08-02 13:28] LABS: Basophils Percent Auto 0.5 % (0-2); Eosinophils Absolute Auto 0.1 X10*3/uL (0.0-0.4); Eosinophils Percent Auto 1.7 % (0-4); Hemoglobin 15.1 g/dl (12.0-16.0); Imm Gran Abs Auto 0.01 X10*3/uL (0.00-0.03); Imm Gran Pct Auto 0.2 % (0.0-0.4); Lymphocytes Percent Auto 33.7 % (20-40); Mean Corpuscular HGB Conc 33.6 g/dl (31.0-35.0); Mean Corpuscular Volume 95.3 fL (80.0-98.0); Monocytes Absolute Auto 0.4 X10*3/uL (0.1-1.2); Monocytes Percent Auto 6.8 % (2-11); Neutrophils Absolute Auto 3.3 x10*3/uL (2.0-8.3); Neutrophils Percent Auto 57.1 % (45-73); Platelet Count 240 X10*3/uL (160-400); Red Blood Count 4.72 X10*6/uL (4.20-5.50); Red Cell Distribution Width 12.5 % (11.0-16.0); White Blood Count 5.9 X10*3/uL (4.8-10.8)
[2024-08-02 14:27] LABS: Alanine Aminotransferase 15 U/L (0-31); Albumin Level 4.4 g/dL (3.5-5.0); Alkaline Phosphatase 113 U/L (39-117); Anion Gap 12 (12-20); Aspartate Amino Transferase 16 U/L (5-31); Bilirubin Total 1.3 mg/dL (0.0-1.0); Blood Urea Nitrogen 14 mg/dL (9-16); Calcium 10.1 mg/dL (8.4-10.2); Carbon Dioxide 28 mmol/L (22-29); Chloride 105 mmol/L (96-108); Estimated Glomerular Filt Rate > 60; Glucose Fasting 96 mg/dL (60-99); Sodium 141 mmol/L (135-145); Total Protein 7.4 g/dL (6.5-8.0)
[2024-08-02 14:33] LABS: TSH reflex Free T4 1.94 uIU/mL (0.32-4.0); Vitamin D 25-OH Total 62.2 ng/mL (>30)
[2024-08-02 14:37] LABS: Folate 10.7 ng/mL (> or = 4.0); Vitamin B12 371 pg/mL (200-900)
== END 2024-08-02 09:24 | disposition home or self-care (01) ==
LOC: HO.HMGCLDS 09:23
PROVIDERS: PCP Internal Medicine; Visit Provider Internal Medicine
DX: R63.6 Underweight (principal); E55.9 Vitamin D deficiency, unspecified; G80.9 Cerebral palsy, unspecified; R63.4 Abnormal weight loss
CPT/HCPCS: 36415; 80053; 82306; 82607; 82746; 84443; 85025

== ENCOUNTER 2024-08-15 14:19 | Outpatient (AMB) | payer MEDICARE, MEDICAID, SELFPAY ==
[2024-08-15 14:51] VITALS: BP 100/70; PULSE 84; O2SAT 98; BMI 16.8
--- NOTE | 2024-08-15 14:51 | A.OFFPC_ITS ---
Vital Signs 08/15/24 14:51 Height 5 ft 2 in Weight 92 lb BMI 16.8 BP 100/70 Blood Pressure Location Rt brachial Position Sitting Pulse 84 Pulse Source Pulse Oximeter Pulse Oximetry (%) 98 Oxygen Delivery Method Room Air Intake Visit Reasons: weight loss Intake Note: Pt is here today c/o weight loss Allergies citalopram [From Celexa] Allergy (Unknown, Verified 08/19/24 02:23) Unknown nitrofurantoin [From Macrodantin] Allergy (Unknown, Verified 08/19/24 02:23) Unknown Medication List - Last Reconciled 08/19/24 by Madelin Reyes MD acetaminophen 500 mg PO Q6H PRN bacitracin 1 appl topical Q8H PRN 5 days baclofen 10 mg PO BID baclofen 20 mg PO PRN docusate sodium 100 mg PO BID emollient combination no.69 (Eucerin Skin Calming cream) Apply once a day as directed topically QD; [lightweight manual wheelchair As directed] miscellaneous medical supply lift chair as directed; phenazopyridine 199 mg PO TID PRN [Wheelchair tires As directed] Tobacco use date assessed: 08/15/24 Dental Screening Dental Screen Date: 08/15/24 Did you have a dental visit in the last 12 months?: Yes Did you have a dental problem in the last 6 months where you did not have access to dental care?: No Was dental information given to patient?: Patient has dentist HPI weight loss HPI Details 54 year-old lady with cerebral palsy, dy slipidemia, developmental nonverbal disorder, with gait instability, urinary incontinence and history of vitamin-D deficiency, here today accompanied by new caregiver at her skilled nursing, and mother , for follow-up. They have been very confused as to what she can eat. Patient's skilled nursing has a list that they can not give her, but mom says that she was able to feed her crackers, and foods that have been cut up in small bites, without encountering any swallowing difficulties.. Her previous caregiver states that patient would choke every time she eats or drinks anything. She had a modified barium swallow which showed presence intermittent trace laryngeal penetration with thin, puree, ground, and regular solid barium consistencies. Aspiration was seen with nectar thick liquid., and was referred to speech pathology . Mom is very concerned that patient is losing weight.. [facility] Medical History Abnormal barium swallow Underweight Vitamin D deficiency History of COVID-19 Weight loss, unintentional Gait instability Dyslipidemia Cerebral palsy Constipation Urinary incontinence Ataxia Surgical History No history of previous surgery Family History Mother Fibromyalgia Osteoporosis Social History Housing: Other Housing Other:: skilled nursing Alcohol intake: never Patient Tobacco Use Status: Never used Tobacco e-Cigarette/Vaping Use: Never Used Current occupational status: disabled Gender identity: Female Cognitive needs: Yes Hearing needs: No Vision needs: No Female Reproductive History Menstrual Date of menopause: 01/13/21 Questionnaire Thrive Questionnaire Date Thrive assessed: 09/22/23 DUTCH-7 AMB Questionnaire DUTCH-7 Date UDTCH - 7 assessed: 09/22/23 Source: Developed by Drs. Mateo Valentine, Bia Vazquez, Gordo Barnes and colleagues, with an educational noy from [employer] Review of Systems Const Reports as per HPI and Denies stops breathing during sleep ENT Reports no additional complaints, Reports as per HPI and Denies nasal congestion Card Reports no additional complaints and Denies dyspnea Resp Reports no additional complaints, Denies cough and Denies dyspnea GI Reports as per HPI and Denies vomiting Neuro Reports Abnormal speech present and Reports lack of coordination Physical exam (Primary Care) Vital Signs: Last Vital Signs Pulse 84 08/15/24 14:51 BP 100/70 08/15/24 14:51 Pulse Ox 98 08/15/24 14:51 Oxygen Delivery Method Room Air 08/15/24 14:51 BMI result Body Mass Index 16.8 Tobacco/Smoking Status: Tobacco use Status Tobacco use date assessed 08/15/24 08/15/24 15:01 Patient Tobacco Use Status Never used Tobacco 08/15/24 15:01 e-Cigarette/Vaping Use Never Used 08/15/24 15:01 Thrive Assessment: Date of Thrive Assessment Date Thrive assessed 09/22/23 08/15/24 15:01 Const Other: Unable to do full exam as patient not cooperating fully General: no acute distress Limitations: behavioral limitations, language barrier and physical limitations HENMT Head: Yes normocephalic and Yes atraumatic Ears: external ears normal General nose exam: Normal external nose present and No nasal discharge present Eyes General: appearance normal, both eyes and all related structures Neck Neck: Yes supple Cardio Rate: regular rate Rhythm: regular rhythm Heart sounds: S1 normal heart sound present and S2 normal heart sound present GI Palpation (GI): Soft to palpation, nontender, no guarding and no masses Auscultation: normal bowel sounds Neuro General: moves all extremities Cognition (Neuro): abnormal cognition Speech: Abnormal speech present Assessment and Plan Assessment & Plan (1) Abnormal barium swallow: Code(s): R93.3 - Abnormal findings on diagnostic imaging of other parts of digestive tract Plan: Stat referral made again for her to be evaluated this speech and hearing center at [facility] Orders: Referrals Speech and Hearing Referral R93.3 - Abnormal findings on diagnostic imaging of other parts of digestive tract Coding Level of Care Code Est Pt Level 3 (65649) Diagnoses Abnormal barium swallow R93.3
== END 2024-08-15 16:44 | disposition home or self-care (01) ==
PROVIDERS: PCP Internal Medicine; Visit Provider Internal Medicine
DX: R93.3 Abnormal findings on diagnostic imaging of other parts of digestive tract (principal)

== ENCOUNTER → 2024-08-15 14:19 | Outpatient (BNVA) | payer MEDICARE, MEDICAID, SELFPAY | PROVIDERS: PCP Internal Medicine; Visit Provider Internal Medicine ==

== ENCOUNTER 2024-08-15 15:42 | Outpatient (REF) | payer MEDICARE, MEDICAID, SELFPAY ==
--- NOTE | ~2024-08-15 | XR_ITS ---
EXAMINATION: XR CERVICAL SPINE CLINICAL INFORMATION: Other muscle spasm COMPARISON: CT cervical spine 10/31/2022 TECHNIQUE: AP and lateral views of the cervical spine. The technologist notes that there is motion on the lateral view. The current study is actually a repeat. First one was worse. Patient with disabilities had to be held by plane tableman in order to get the 2 views. FINDINGS: There is motion on the lateral view. C6 and C7 are obscured by the soft tissues of the patient's shoulder. Because of motion, C2 not well evaluated. No fracture. Prevertebral soft tissues are within normal limits. There is marked disc space narrowing at C4-5 and C5-C6. There is preservation of the normal cervical lordosis. Slight anterolisthesis of C3 with respect to C4. XR/XR cervical spine 2V IMPRESSION: 1. Degenerative disc disease at C4-5 and C5-C6. 2. Slight anterolisthesis of C3 with respect to C4. Electronically signed by: Moriah Leiva MD 09/02/2024 01:31 PM EDT
== END 2024-08-15 15:43 | disposition home or self-care (01) ==
LOC: HO.HMGCX 15:42
PROVIDERS: PCP Internal Medicine; Visit Provider Internal Medicine
DX: M62.838 Other muscle spasm (principal)
CPT/HCPCS: 72040; 99212

== ENCOUNTER → 2024-10-02 12:24 | Outpatient (BNVA) | payer MEDICARE, MEDICAID, SELFPAY | PROVIDERS: PCP Internal Medicine; Visit Provider Internal Medicine ==

== ENCOUNTER 2024-11-04 10:08 | Outpatient (RCR) | payer MEDICARE, MEDICAID, SELFPAY ==
--- NOTE | 2024-11-04 14:46 | MHC.PT.EP ---
[facility] [place] Office [place] Office [place] Office [address] [phone] F: [phone] F: [phone] F: [phone] F: [phone] Physical Therapy Plan of Care Date of Evaluation: 11/04/24 Date of Surgery: Diagnosis: cerebral palsy, unspecified Other cervical disc degeneration, unspecified cervical region Cerebral palsy *Degenerative disc disease, cervical Assessment: Pt is a 54yo F who presents to PT with referral of Other cervical disc degeneration, unspecified cervical region. Pt presents to PT with her mother and caregiver. Pt unable to provide history at time of evaluation. She presents sitting in her wheelchair holding her neck with B hands. Her neck is laterally flexed toward her right side. I was unable to assess cervical spine ROM as she was unable to follow 1-step cues to participate in initial PT evaluation. I discussed with pts mother and her caregiver that I think the pt may benefit more from home PT vs outpatient PT to assist with positioning in her home and environmental set up recommendations. I recommended following up with PCP to discuss home PT referral and pts mother is in agreement with this plan Frequency and Duration: The patient will be seen Short Term Goals: Group Home Goals: Treatment Plan: Modalities to reduce pain, spasms and effusion. Manual therapy to restore motion and function. Therapeutic exercise to improve strength and flexibility. Neuromuscular re-education for posture and balance. Therapeutic activities to return to functional activities of daily living. Electronically signed by: Madeline Lei, PT, DPT Please sign and return to therapist. Thank you for your referral.
== END 2024-11-04 14:47 | disposition home or self-care (01) ==
LOC: HO.PT 10:08
PROVIDERS: PCP Internal Medicine; Visit Provider Internal Medicine
DX: G80.9 Cerebral palsy, unspecified (principal); M50.30 Other cervical disc degeneration, unspecified cervical region
CPT/HCPCS: 97162

== ENCOUNTER 2024-11-12 12:57 | Outpatient (AMB) | payer MEDICARE, MEDICAID, SELFPAY ==
--- NOTE | 2024-11-12 13:09 | MHC.PC.OV ---
Vital Signs 11/12/24 13:13 Height 5 ft 2 in Weight 93 lb BMI 17.0 BP 100/62 Blood Pressure Location Lt brachial Position Sitting Pulse 96 Pulse Oximetry (%) 98 Intake Visit Reasons: Annual- see comments Intake Note: Pt is here today for her PE Allergies citalopram [From Celexa] Allergy (Unknown, Verified 11/18/24 04:15) Unknown nitrofurantoin [From Macrodantin] Allergy (Unknown, Verified 11/18/24 04:15) Unknown lalit bites Adverse Reaction (Uncoded 11/18/24 04:15) eye swells Medication List - Last Reconciled 11/18/24 by Madelin Reyes MD acetaminophen orally 8 am , 12 pm, and 8 pm; 30 days bacitracin 1 appl topical Q8H PRN 5 days baclofen 10 mg PO BID baclofen 20 mg PO PRN docusate sodium 100 mg PO BID emollient combination no.69 (Eucerin Skin Calming cream) Apply once a day as directed topically QD; lidocaine 4% (Salonpas (lidocaine)) 1 patch topical DAILY [lightweight manual wheelchair As directed] miscellaneous medical supply lift chair as directed; polyethylene glycol 3350 (Miralax) 17 grams PO DAILY PRN vibegron (Gemtesa) 75 mg PO DAILY [Wheelchair tires As directed] Tobacco use date assessed: 11/12/24 Dental Screening Dental Screen Date: 11/12/24 Did you have a dental visit in the last 12 months?: Yes Did you have a dental problem in the last 6 months where you did not have access to dental care?: No Was dental information given to patient?: Patient has dentist HPI Annual- see comments HPI Details - The patient is a 54-year-old female with history of cerebral palsy, dyslipidemia, and cervical disc disease, here today accompanied by caregiver and mother for her physical exam. She has been noticed to be constantly clutching her posterior neck. Empirically prescribed Tylenol to take 1 tablet every 4 hours which did alter patient's current behavior of clutching her neck - Recent evaluations including CT scans have shown cerebellar atrophy and cervical instability. Past history includes slipping of vertebra in cervical spine regions C3 to C4, and C4 to C6, related degenerative arthritis. - already taking baclofen which has not really afforded any change in her mannerisms - Occasional aspirations documented with barium swallow test. - she has been sent to physical therapy but was unable to have therapy done as patient unable to communicate adequately her concerns . They recommended having PT visit her at home and assess how she sits and positions herself when she is at home. Connection to possible positional effects with current eating postures. [facility] Medical History (Updated 11/12/24 @ 14:01 by Madelin Reyes MD) Cervical disc disease Abnormal barium swallow Underweight Vitamin D deficiency History of COVID-19 Weight loss, unintentional Gait instability Dyslipidemia Cerebral palsy Constipation Urinary incontinence Ataxia Surgical History No history of previous surgery Family History Mother Fibromyalgia Osteoporosis Social History Housing: Other Housing Other:: [facility] Alcohol intake: never Patient Tobacco Use Status: Never used Tobacco e-Cigarette/Vaping Use: Never Used Current occupational status: disabled Gender identity: Female Cognitive needs: Yes Hearing needs: No Vision needs: No Female Reproductive History Menstrual Date of menopause: 01/13/21 Questionnaire PHQ-9 Over the last 2 weeks, how often have you been bothered by any of the following problems? 96230 - PHQ-9 Billing: Patient declined-do not bill Source: Developed by Drs. Mateo Valentine, Bia Vazquez, Gordo Barnes and colleagues, with an educational noy from [employer]. Thrive Questionnaire Date Thrive assessed: 11/12/24 I am a: Parent/Caregiver What is your living situation today?: I have a steady place to live Within the past 12 months, did the food you bought not last and you didn't have the money to get more?: Never true Within the past 12 months, did you worry whether your food would run out before you got money to buy more?: Never true Do you have trouble paying for medicines?: No Do you have trouble getting transportation to medical appointments?: No Do you have trouble paying your heating and electricity bill?: No Do you have trouble taking care of your child, family member or friend?: No Do you have trouble with day-to-day activities such as bathing, preparing meals, shopping, managing finances, etc.?: No Are you currently unemployed and looking for a job?: No Are you interested in more education?: No Please select the resources that you would like help with: None Currently or been in a relationship where the following occur: No concerns reported THRIVE Score: 0 AUDIT C Alcohol Use Questionnaire (AUDIT-C) 1. How often do you have a drink containing alcohol?: Never Total Score: 0 Review of Systems Const Reports as per HPI and Denies stops breathing during sleep Eyes Reports no additional complaints ENT Reports no additional complaints, Reports as per HPI and Denies nasal congestion Card Reports no additional complaints and Denies dyspnea Resp Reports no additional complaints, Denies cough and Denies dyspnea GI Reports as per HPI and Denies vomiting Reports no additional complaints Musc Reports as per HPI and Reports abnormal gait (Tends to lean towards 1 side when walking) Skin/Breast Denies breast pain, Denies breast mass and Denies lesions Neuro Reports Abnormal speech present, Reports abnormal gait (Tends to lean towards 1 side when walking) and Reports lack of coordination Psych Reports no additional complaints Endo Reports no additional complaints Alonso/Lymph Reports no additional complaints Aller/Immun Reports no additional complaints Physical exam (Primary Care) Vital Signs: Last Vital Signs Pulse 96 11/12/24 13:13 BP 100/62 11/12/24 13:13 Pulse Ox 98 11/12/24 13:13 BMI result Body Mass Index 17.0 Tobacco/Smoking Status: Tobacco use Status Tobacco use date assessed 11/12/24 11/12/24 13:29 Patient Tobacco Use Status Never used Tobacco 11/12/24 13:10 e-Cigarette/Vaping Use Never Used 11/12/24 13:10 PHQ-9: PHQ-9 Score PHQ-9: Total score 0 11/12/24 14:50 Thrive Assessment: Date of Thrive Assessment Date Thrive assessed 09/22/23 11/12/24 13:10 Currently or been in a relationship where the following occur: No concerns reported Const Other: Unable to do full exam as patient not cooperating fully General: no acute distress Limitations: behavioral limitations, language barrier and physical limitations HENMT Head: Yes normocephalic and Yes atraumatic Ears: external ears normal General nose exam: Normal external nose present and No nasal discharge present Eyes General: appearance normal, both eyes and all related structures Neck Neck: Yes supple Resp Auscultation: clear to auscultation bilaterally Cardio Rate: regular rate Rhythm: regular rhythm Heart sounds: S1 normal heart sound present and S2 normal heart sound present GI Palpation (GI): Soft to palpation, nontender, no guarding and no masses Auscultation: normal bowel sounds Skin General skin exam: no rashes or lesions noted Neuro Other: Abnormal gait with tendency to lean towards 1 side when walking causing loss of balance General: moves all extremities Cognition (Neuro): abnormal cognition Speech: Abnormal speech present Romberg Test: Positive Extrem Other: Decreased range of motion in upper and lower extremity General: Yes no joint enlargement and Yes no pedal edema Results Reviewed Results Reviewed: Name: Lotus Roberts Age/Sex: 54/F : 1970 Unit#: [id number] Attend Dr: Madelin Reyes MD Re08/02/24 Status: DEP REF Location: [facility] Disch: SPEC : [id number] DENIA: 08/02/24 STATUS: COMP REQ : [id number] RECD: 08/02/[address]: Madelin Reyes MD COMP: 08/02/24 ENTERED: 08/02/24 [facility] DR: ORDERED: CBC Auto Diff Test Result Flag Reference WBC 5.9 4.8-10.8 X10*3/uL RBC 4.72 4.20-5.50 X10*6/uL HGB 15.1 12.0-16.0 g/dl HCT 45.0 37.0-47.0 % MCV 95.3 80.0-98.0 fL MCH 32.0 27.0-33.0 pg MCHC 33.6 31.0-35.0 g/dl RDW 12.5 11.0-16.0 % PLT 240 # 160-400 X10*3/uL MPV 12.0 9.4-12.3 fL Neut Pct Auto 57.1 45-73 % ImGran Pct Auto 0.2 0.0-0.4 % Lymp Pct Auto 33.7 20-40 % [place] Pct Auto 6.8 2-11 % Eos Pct Auto 1.7 0-4 % Baso Pct Auto 0.5 0-2 % NRBC Pct Auto 0.0 0.0-0.2 /100WBC ANC Neut Abs # 3.3 2.0-8.3 x10*3/uL ImGran Abs Auto 0.01 0.00-0.03 X10*3/uL Lymph Abs Auto 2.0 1.2-4.9 X10*3/uL [place] Abs Auto 0.4 0.1-1.2 X10*3/uL Eos Abs Auto 0.1 0.0-0.4 X10*3/uL Baso Abs Auto 0.0 0.0-0.2 X10*3/uL Name: Lotus Roberts Age/Sex: 54/F : 1970 Unit#: [id number] Attend Dr: Madelin Reyes MD Re08/02/24 Status: DEP REF Location: [facility] Disch: SPEC : [id number] DENIA: 08/02/24 STATUS: COMP REQ : [id number] RECD: 08/02/24-[address]: Madelin Reyes MD COMP: 08/02/243 ENTERED: 08/02/[address]: ORDERED: CMP Fast, Vitamin D 25-OH, TSH Rflx Test Result Flag Reference Sodium 141 135-145 mmol/L Potassium 4.0 3.3-5.1 mmol/L CL 105 96-108 mmol/L CO2 28 22-29 mmol/L Gap 12 12-20 BUN 14 9-16 mg/dL Creat 0.76 0.5-1.4 mg/dL EGFR > 60 NOTE: For -[place] individuals, multiply the result by 1.210. Chronic Kidney Disease: Estimated GFR < 60 mL/min/1.73m2 Severe Kidney Disease: Estimated GFR < 15 mL/min/1.73m2 FBS 96 60-99 mg/dL CA 10.1 # 8.4-10.2 mg/dL Total Bili 1.3 H 0.0-1.0 mg/dL AST (GOT) 16 5-31 U/L ALT (GPT) 15 0-31 U/L Protein, Total 7.4 6.5-8.0 g/dL Alb 4.4 3.5-5.0 g/dL Alk Phos 113 39-117 U/L Vit D 25-OH Tot 62.2 >30 ng/mL Health Based Reference Values* < 20 ng/mL Deficient 20-30 ng/mL Insufficient > 30 ng/mL Sufficient *Kianna RAMIREZ. N Engl J Med. 2007;357:266-280 Care must be taken in interpreting Vitamin D results from different laboratories and methodologies. Published data demonstrated that results from patients undergoing hemodialysis may show a negative bias when tested with various automated 25-OH vitamin D assays when compared to LC-MS/MS. When testing samples from patients whose predominant form of Vitamin D is Vitamin D2, such as patients receiving Vitamin D2 supplementation, results that are subtherapeutic should be confirmed with another method such as LC-MS/MS. TSH 1.94 0.32-4.0 uIU/mL Laboratory Tests 08/02/24 09:31 Vitamin B12 371 25-OH Vitamin D Total 62.2 Folate 10.7 TSH 1.94 Coding Level of Care Code Est Pt Prev Care 40-64y(23570) Diagnoses Annual visit for general adult medical examination with abnormal findings Z00.01 Cervical disc disease M50.90 Gait instability R26.81 Developmental non-verbal disorder F81.89 Cerebral palsy G80.9 Assessment & Plan Assessment & Plan (1) Annual visit for general adult medical examination with abnormal findings: Code(s): Z00.01 - Encounter for general adult medical examination with abnormal findings (2) Cervical disc disease: Code(s): M50.90 - Cervical disc disorder, unspecified, unspecified cervical region Category: Medical Plan: Referred for home PT to evaluate how she sits at her own place, evaluate her at her own home environment.. Try using lidocaine patch or Salonpas patch to affected area in posterior neck once or twice a day. Decrease intake of acetaminophen to just 1 tablet by mouth at 08:00, 12:00 noon and 20:00 (3) Gait instability: Code(s): R26.81 - Unsteadiness on feet Category: Medical (4) Developmental non-verbal disorder: Code(s): F81.89 - Other developmental disorders of scholastic skills Category: Medical (5) Cerebral palsy: Code(s): G80.9 - Cerebral palsy, unspecified Category: Medical Plan - Continue Baclofen for treatment of muscle spasm and potential benefit in torticollis -recent fasting labs reviewed which showed normal CBC, basic metabolic panel, fasting glucose, vitamin B12 vitamin-D folic acid level, liver function and and thyroid stimulating hormone level - Initiate use of Salonpas pain relief patches old lidocaine patches to alleviate muscle spasm discomfort. - Schedule home-based physical therapy for personalized intervention and positioning strategies. - Adjust acetaminophen regimen - Monitor for signs of aspiration with potential need for further swallow evaluations. - Follow up with neurologist for cerebellar atrophy impact and management. - Ensure urology follow-up for urinary concerns noted historically - up-to-date with her Tdap, reminded to get her vaccinated for flu this year, get COVID booster, and she is eligible to get the shingles vaccination Patient was informed and verbally consented to the use of an ambient scribe for clinic note documentation during this visit. Orders: Orders PT Evaluation and Treatment 11/12/24 M50.90 - Cervical disc disorder, unspecified, unspecified cervical region Medications: New lidocaine 4% (Salonpas (lidocaine)) put on right and left posterior neck 1 patch topical DAILY 60 ea 1RF pain Changed From acetaminophen For neck pain-give at 8am, 12pm, 4pm, 8pm. 500 mg PO QID 56 tabs 0RF 2 weeks To acetaminophen orally 8 am , 12 pm, and 8 pm; 30 days 90 tabs 1RF
[2024-11-12 13:13] VITALS: BP 100/62; PULSE 96; O2SAT 98; BMI 17.0
== END 2024-11-12 14:50 | disposition home or self-care (01) ==
PROVIDERS: PCP Internal Medicine; Visit Provider Internal Medicine
DX: Z00.00 Encounter for general adult medical examination without abnormal findings (principal); M50.90 Cervical disc disorder, unspecified, unspecified cervical region; R26.81 Unsteadiness on feet; G80.9 Cerebral palsy, unspecified; F81.89 Other developmental disorders of scholastic skills

== ENCOUNTER → 2024-11-12 12:57 | Outpatient (BNVA) | payer MEDICARE, MEDICAID, SELFPAY | PROVIDERS: PCP Internal Medicine; Visit Provider Internal Medicine | DX: Z00.01 Encounter for general adult medical examination with abnormal findings (principal); G80.9 Cerebral palsy, unspecified; E78.5 Hyperlipidemia, unspecified; M50.30 Other cervical disc degeneration, unspecified cervical region; R26.81 Unsteadiness on feet; F81.89 Other developmental disorders of scholastic skills; Z79.899 Other long term (current) drug therapy | CPT/HCPCS: 99396 ==

== ENCOUNTER 2025-07-09 14:29 | Outpatient (AMB) | payer MEDICARE, MEDICAID, SELFPAY ==
--- NOTE | 2025-07-09 14:43 | A.OFFVIS_ITS ---
Vital Signs 07/09/25 14:43 Height 5 ft 2 in Intake Visit Reasons: 1 Year Follow Up Accompanied by: staff member, sister Allergies citalopram (From Celexa) Allergy (Unknown, Verified 07/09/25 14:43) Unknown nitrofurantoin (From Macrodantin) Allergy (Unknown, Verified 07/09/25 14:43) Unknown lalit bites Adverse Reaction (Uncoded 07/09/25 14:43) eye swells Medication List - Last Reconciled 07/09/25 by Hayde Jara CNP acetaminophen orally 8 am , 12 pm, and 8 pm; 30 days bacitracin Apply small amount topically every 8 hours PRN; 5 days baclofen 10 mg PO BID 30 days baclofen 20 mg PO QID 30 days docusate sodium 100 mg PO BID [lightweight manual wheelchair As directed] magnesium hydroxide (Milk of Magnesia) 5 mL PO BEDTIME PRN meloxicam 15 mg PO DAILY miscellaneous medical supply lift chair as directed; polyethylene glycol 3350 (Miralax) 17 grams PO DAILY PRN vibegron (Gemtesa) 75 mg PO DAILY [Wheelchair tires As directed] HPI Comments Details: She was here with mother and staff member. Neck did not seem to be bothering her as much. They noticed she was not holding her neck as much. She was sometimes holding her ear or cheek. She was more verbal, using her hands more, and posture seemed better. Appetite was okay. No difficulty eating, drinking, or swallowing. She did not do PT or see pain clinic. Her mother was concerned she was having neck pain in 12/2024 as she was holding her neck. She saw PCP and C-Spine XR ordered which showed degenerative changes. Tried lidocaine patches, but kept removing them and they were discontinued. Tried outpatient PT, but had trouble following instructions and home PT recommended instead. Drooling is unchanged. Bites herself. Orthotics were suggested, but mother declined. Will rarely throw herself on the ground. Sometimes tongue sticks out. Lucero at times. Occasionally stumbles, but no falling. Needs to be hand walked. Tried bracing the foot. Walks on her toes. Stance has become somewhat wide and sometimes drags her toes, especially on the right side and can catch it on the carpet. Occasionally has sudden falls. 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 Babbles and occasionally repeats a few words. She has history of microcephaly, seizures that have not recurred, behavior disorder, and ataxia with mild encephalopathy. [facility] Medical History (Updated 07/09/25 @ 14:52 by Hayde Jara CNP) Cervical disc disease Abnormal barium swallow Underweight Vitamin D deficiency History of COVID-19 Weight loss, unintentional Gait instability Dyslipidemia Cerebral palsy Constipation Urinary incontinence Ataxia Surgical History No history of previous surgery Family History Mother Fibromyalgia Osteoporosis Social History Housing: Other Housing Other:: [facility] Alcohol intake: never Patient Tobacco Use Status: Never used Tobacco e-Cigarette/Vaping Use: Never Used Current occupational status: disabled Gender identity: Female Cognitive needs: Yes Hearing needs: No Vision needs: No Female Reproductive History Menstrual Date of menopause: 01/13/21 Review of Systems Const Other (per family/[facility] staff) Denies chills, Denies daytime sleepiness, Denies difficulty sleeping, Denies fatigue, Denies fever(s), Denies frequent falls, Denies headache(s), Denies increased appetite, Denies poor appetite, Denies snoring, Denies weakness, Den ies weight gain and Denies weight loss Eyes Denies loss of vision ENT Denies vertigo, Denies dizziness, Denies headache(s) and Reports neck pain Card Denies chest pain at rest, Denies chest pain with activity, Denies syncope, Denies leg edema, Denies palpitations, Denies dyspnea and Denies dyspnea on exertion Resp Denies cough, Denies dyspnea, Denies dyspnea on exertion and Denies snoring GI Denies abdominal pain, Denies constipation, Denies heartburn, Denies diarrhea an d Denies nausea Denies urinary frequency, Denies urinary incontinence and Denies urinary urgency Musc Denies abnormal gait, Denies back pain, Denies myalgias, Denies arthralgias, Reports neck pain, Denies numbness and Denies tingling Neuro Denies abnormal gait, Denies vertigo, Denies dizziness, Denies syncope, Denies frequent falls, Denies headache(s), Denies lack of coordination, Denies loss of vision, Denies memory loss, Denies numbness, Denies Other visual disturbances, Denies restless legs, Denies seizure-like activity, Denies tingling, Denies paresthesias, Denies tremor(s) and Denies weakness Psych Reports anxiety, Denies depression, Denies auditory hallucinations, Denies memory loss and Denies visual hallucinations Endo Denies fatigue and Denies palpitations Physical Exam Const Other: General Appearance:? normal, in no acute distress. Neuro: Limited exam, does not verbalize or follow commands. Cranial nerves grossly intact. No facial asymmetry. Moves all 4 extremities, mild hypertonicity. Heart:? S1, S2 normal, no murmurs. Lungs:? clear anteriorly and posteriorly. Musculoskeletal:?in wheelchair. No tenderness to cervical spine or paraspinal muscles. Extremities:? no edema. Psych:? alert Results Reviewed Results Reviewed: [facility] [address] [address] XRay Report Signed Patient: Lotus Roberts MR#: [id number] : 1970 Acct:[id number] Age/Sex: 54 / F ADM Date: 08/15/24 [facility] Dr: Madelin Reyes MD Ordering Physician: Madelin Reyes MD Date of Service: 08/15/24 Procedure(s): XR cervical spine 2V Accession Number(s): [id number] cc: Madelin Reyes MD~ EXAMINATION: XR CERVICAL SPINE CLINICAL INFORMATION: Other muscle spasm COMPARISON: CT cervical spine 10/31/2022 TECHNIQUE: AP and lateral views of the cervical spine. The technologist notes that there is motion on the lateral view. The current study is actually a repeat. First one was worse. Patient with disabilities had to be held by gear changer in order to get the 2 views. FINDINGS: There is motion on the lateral view. C6 and C7 are obscured by the soft tissues of the patient's shoulder. Because of motion, C2 not well evaluated. No fracture. Prevertebral soft tissues are within normal limits. There is marked disc space narrowing at C4-5 and C5-C6. There is preservation of the normal cervical lordosis. Slight anterolisthesis of C3 with respect to C4. XR/XR cervical spine 2V IMPRESSION: 1. Degenerative disc disease at C4-5 and C5-C6. 2. Slight anterolisthesis of C3 with respect to C4. Electronically signed by: Moriah Leiva MD 09/02/2024 01:31 PM EDT RP Assessment & Plan Assessment & Plan (1) Convulsions: Code(s): R56.9 - Unspecified convulsions Category: Medical Qualifiers: Convulsion type: unspecified Qualified Code(s): R56.9 - Unspecified c onvulsions Plan: Continue baclofen 20mg 1 tablet at 8am, noon, 4pm, and 8pm. Continue baclofen 10mg 1 tablet twice a day (with 20mg for total of 30mg) (2) Cervical disc disease: Code(s): M50.90 - Cervical disc disorder, unspecified, unspecified cervical region Category: Medical Plan: Continue meloxicam 15mg 1 tablet daily. Coding Level of Care Code Est Pt Level 4 (20582) Diagnoses Convulsions, unspecified convulsion type R56.9 Convulsion type: unspecified Cervical disc disease M50.90
--- OUTSIDE RECORDS SUMMARY | 2025-07-09 14:43 | XMS_ITS | Encounter Summary ---
Author Organization [facility] Address [address] [place] [address] Care Team Providers Care Synthetic Filament Spinner Name Role Phone Madelin Reyes MD Primary Care Provider [phone] Encounter Details Date Type Department Care Team (Late st Contact Info) Description 11/26/2024 Lab Requisition [facility] - Main Lab [address] [place] [address] Rachel Clemente NP [address] [facility] [address] [place] [address] Urge incontinence Social History Tobacco Use Types Packs/Day Years Used Date Smoking Tobacco: Never Assessed Interpersonal Safety Answer Date Record ed Physical Abuse 11/28/2024 Verbal Abuse 11/28/2024 Comments Unknown Sex and Gender Information Value Date Recorded Sex Assigned at Female 11/28/2024 7:30 AM EST Legal Sex Female 2:39 AM EST Gender Identity Female 11/28/2024 7:30 AM EST Sexual Orientation Straight 11/28/2024 7: 30 AM EST documented as of this encounter Plan of Treatment Scheduled Orders Name Type Priority Associated Diagnoses Orde r Schedule Bacterial identification and susceptibility, aerobic Microbiology Routine Urge incontinence Ordered: 11/26/2024 documented as of this encounter Visit Diagnoses Diagnosis Urge incontinence documented in this encounter Care Teams Synthetic Filament Spinner Relationship Specialty Start Date End Date Madelin Reyes MD [address] [facility] [place] [address] PCP - General Internal Medicine 11/28/24 documented as of this encounter
== END 2025-07-09 15:06 | disposition home or self-care (01) ==
LOC: HO.HSM 14:29
PROVIDERS: PCP Internal Medicine; Referring Provider Internal Medicine; Visit Provider Registered Nurse
DX: R56.9 Unspecified convulsions (principal); M50.90 Cervical disc disorder, unspecified, unspecified cervical region
CPT/HCPCS: 99214

== ENCOUNTER → 2025-07-09 14:29 | Outpatient (BNVA) | payer MEDICARE, MEDICAID, SELFPAY | PROVIDERS: PCP Internal Medicine; Referring Provider Internal Medicine; Visit Provider Registered Nurse | DX: M50.90 Cervical disc disorder, unspecified, unspecified cervical region (principal); R56.9 Unspecified convulsions | CPT/HCPCS: 99212 ==

== ENCOUNTER 2025-07-10 11:45 | Outpatient (AMB) | payer MEDICARE, MEDICAID, SELFPAY ==
[2025-07-10 11:58] VITALS: BP 100/78; PULSE 79; RESP 15; TEMP 36.6; O2SAT 100
--- NOTE | 2025-07-10 11:58 | A.OFFPC_ITS ---
Vital Signs 07/10/25 11:58 BMI Reason not done Patient refused/unable BP 100/78 Blood Pressure Location Rt brachial Position Sitting Respiration 15 Pulse 79 Pulse Source Pulse Oximeter Temp 97.8 F Temp Source Oral Pulse Oximetry (%) 100 Oxygen Delivery Method Room Air Intake Visit Reasons: Right ear discomfort Intake Note: Pt is here today Rt ear discomfort Allergies citalopram (From Celexa) Allergy (Unknown, Verified 07/10/25 12:07) Unknown nitrofurantoin (From Macrodantin) Allergy (Unknown, Verified 07/10/25 12:07) Unknown lalit bites Adverse Reaction (Uncoded 07/10/25 12:07) eye swells Medication List - Last Reconciled 07/10/25 by Madelin Reyes MD acetaminophen orally 8 am , 12 pm, and 8 pm; 30 days bacitracin Apply small amount topically every 8 hours PRN; 5 days baclofen 10 mg PO BID 30 days baclofen 20 mg PO QID 30 days docusate sodium 100 mg PO BID [lightweight manual wheelchair As directed] magnesium hydroxide (Milk of Magnesia) 5 mL PO BEDTIME PRN meloxicam 15 mg PO DAILY miscellaneous medical supply lift chair as directed; phenazopyridine 190 mg PO TID PRN polyethylene glycol 3350 (Miralax) 17 grams PO DAILY PRN vibegron (Gemtesa) 75 mg PO DAILY [Wheelchair tires As directed] Tobacco use date assessed: 11/12/24 Dental Screening Dental Screen Date: 11/12/24 HPI HPI Comments History of Present Illness Details 55-year-old lady with history of cerumen palsy, accompanied by today by her caregiver and mother, who states that patient has been feeling frequently with her right ear. Wants to make sure that there is nothing wrong with right ear. Patient does not have any runny nose, no nasal congestion, has been eating well, no ear discharge noted, afebrile. [facility] Medical History Cervical disc disease Abnormal barium swallow Underweight Vitamin D deficiency History of COVID-19 Weight loss, unintentional Gait instability Dyslipidemia Cerebral palsy Constipation Urinary incontinence Ataxia Surgical History No history of previous surgery Family History Mother Fibromyalgia Osteoporosis Social History Housing: Other Housing Other:: longterm Alcohol intake: never Patient Tobacco Use Status: Never used Tobacco e-Cigarette/Vaping Use: Never Used Current occupational status: disabled Gender identity: Female Cognitive needs: Yes Hearing needs: No Vision needs: No Female Reproductive History Menstrual Date of menopause: 01/13/21 Questionnaire Thrive Questionnaire Date Thrive assessed: 11/12/24 I am a: Parent/Caregiver What is your living situation today?: I have a steady place to live Within the past 12 months, did the food you bought not last and you didn't have the money to get more?: Never true Within the past 12 months, did you worry whether your food would run out before you got money to buy more?: Never true Do you have trouble paying for medicines?: No Do you have trouble getting transportation to medical appointments?: No Do you have trouble paying your heating and electricity bill?: No Do you have trouble taking care of your child, family member or friend?: No Do you have trouble with day-to-day activities such as bathing, preparing meals, shopping, managing finances, etc.?: No Are you currently unemployed and looking for a job?: No Are you interested in more education?: No Please select the resources that you would like help with: None Currently or been in a relationship where the following occur: No concerns reported THRIVE Score: 0 Review of Systems Const All systems reviewed & are unremarkable except as noted in HPI and below Physical exam (Primary Care) Vital Signs: Last Vital Signs Temp 97.8 F 07/10/25 11:58 Pulse 79 07/10/25 11:58 Resp 15 07/10/25 11:58 BP 100/78 07/10/25 11:58 Pulse Ox 100 07/10/25 11:58 Oxygen Delivery Method Room Air 07/10/25 11:58 Tobacco/Smoking Status: Tobacco use Status Tobacco use date assessed 11/12/24 07/10/25 12:06 Patient Tobacco Use Status Never used Tobacco 07/10/25 12:06 e-Cigarette/Vaping Use Never Used 07/10/25 12:06 Thrive Assessment: Date of Thrive Assessment Date Thrive assessed 11/12/24 07/10/25 12:06 Currently or been in a relationship where the following occur: No concerns reported Const Other: Unable to do full exam as patient not cooperating fully General: no acute distress Limitations: behavioral limitations, language barrier and physical limitations HENPA Head: Yes normocephalic Ears: external ears normal, TM's normal bilaterally and EAC's normal (With minimal cerumen noted on floor of right ear canal) General nose exam: Normal external nose present and No nasal discharge present Neck Neck: Yes no lymphadenopathy and Yes supple Resp Auscultation: clear to auscultation bilaterally Skin General skin exam: no rashes or lesions noted Coding Level of Care Code Est Pt Level 3 (53644) Diagnoses Cerumen in auditory canal on examination H61.20 Assessment & Plan Assessment & Plan (1) Cerumen in auditory canal on examination: Code(s): H61.20 - Impacted cerumen, unspecified ear Plan: Minimal cerumen removed with ear curette, advised to instill Debrox drops as directed , to prevent further accumulation of ear wax
--- OUTSIDE RECORDS SUMMARY | 2025-07-10 12:51 | XMS_ITS | Encounter Summary ---
Author Organization [facility] Address [address] [place] [address] Care Team Providers Care Auto Damage Trainee Name Role Phone Madelin Reyes MD Primary Care Provider [phone] Encounter Details Date Type Department Care Team (Late st Contact Info) Description 11/26/2024 Lab Requisition [facility] - Main Lab [address] [facility] [place] [address] Rachel Clemente NP [address] [facility] [address] [place] [address] Urge incontinence Social History Tobacco Use Types [...] incontinence documented in this encounter Care Teams Auto Damage Trainee Relationship Specialty Start Date End Date Madelin Reyes MD [address] [facility] [place] [address] PCP - General Internal Medicine 11/28/24 documented as of this encounter
== END 2025-07-10 12:45 | disposition home or self-care (01) ==
PROVIDERS: PCP Internal Medicine; Visit Provider Internal Medicine
DX: H61.21 Impacted cerumen, right ear (principal)

== ENCOUNTER → 2025-07-10 11:45 | Outpatient (BNVA) | payer MEDICARE, MEDICAID, SELFPAY | PROVIDERS: PCP Internal Medicine; Visit Provider Internal Medicine | DX: H61.21 Impacted cerumen, right ear (principal) | CPT/HCPCS: 69210; 99212 ==

== ENCOUNTER → 2025-11-25 14:18 | Outpatient (RCR) | payer MEDICARE, MEDICAID, SELFPAY | END | disposition home or self-care (01) | LOC: HO.SH 09-05 13:05 | PROVIDERS: Visit Provider Internal Medicine | DX: R93.3 Abnormal findings on diagnostic imaging of other parts of digestive tract (principal) | CPT/HCPCS: 92526 ==